=== PATIENT | female | born 1935 | race Caucasian/White ===

== ENCOUNTER → 2016-11-04 | Outpatient (CLI) | payer MEDICARE, BC, OTHER ==
[~2016-11-04] MED LIST: GABA-279 PO
[2016-11-04 11:28] LABS: MEAN CORPUSCULAR HEMOGLOBIN 30.5 pg (27.0-33.0); MEAN CORPUSCULAR HGB CONC 32.7 g/dl (32.0-36.5); MEAN CORPUSCULAR VOLUME 93.1 fl (80.0-96.0); RED CELL DISTRIBUTION WIDTH 12.4 % (11.5-14.5); WHITE BLOOD COUNT 6.8 K/mm3 (4.0-10.0)
[2016-11-04 11:36] LABS: INR 0.95
[2016-11-04 12:35] LABS: ALBUMIN/GLOBULIN RATIO 1.18 (1.00-1.93); ALKALINE PHOSPHATASE 82 U/L (45-117); ALT/SGPT 20 U/L (12-78); ANION GAP 7 MEQ/L (8-16); AST/SGOT 24 U/L (15-37); BILIRUBIN,TOTAL 0.6 MG/DL (0.2-1.0); BLOOD UREA NITROGEN 18 MG/DL (7-18); CALCIUM LEVEL 9.4 MG/DL (8.8-10.2); CARBON DIOXIDE LEVEL 31 MEQ/L (21-32); CHLORIDE LEVEL 104 MEQ/L (98-107); CREATININE FOR GFR 0.83 MG/DL (0.55-1.02); GLOMERULAR FILTRATION RATE > 60.0 (>32); GLUCOSE, FASTING 96 MG/DL (83-110); SODIUM LEVEL 142 MEQ/L (136-145); TOTAL PROTEIN 7.4 GM/DL (6.4-8.2)
--- NOTE | 2016-11-04 12:36 | REP ---
Chest two views HISTORY: Preoperative Comparison: None The lungs are clear. The heart is normal in size. The pulmonary vasculature is normal in appearance. There is an old compression fracture of a mid thoracic vertebral body. IMPRESSION: No acute disease. Signed by Rafa Delacruz MD 11/04/2016 12:28 P
--- NOTE | 2016-11-04 12:54 | ECGEPIP ---
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
== END ==
LOC: M ADMPAT 10:16
PROVIDERS: ATTEND Orthopaedic Surgery
DX: M17.11 Unilateral primary osteoarthritis, right knee (principal); Z79.01 Long term (current) use of anticoagulants

== ENCOUNTER 2016-11-18 06:17 | Inpatient (IN) | payer MEDICARE, BC, OTHER ==
[2016-11-04 11:06] VITALS: BP 130/82
--- NOTE | 2016-11-15 14:40 | HPE ---
DATE OF ADMISSION: 11/18/2016 CHIEF COMPLAINT: Right knee pain and stiffness. HISTORY: This is a pleasant 81-year-old female patient with progressively worsening right knee pain and stiffness. She has failed to improve with conservative management to include, activity modification, injections and physical therapy. She continues to have symptoms in her knee with weightbearing activities and activities of daily living. She has elected for surgery for continued symptoms. She has consented for a right total knee arthroplasty by Dr. Stover. X-rays notable for end-stage degenerative changes of the right knee. Medical optimization completed by Yaz Clemons. ALLERGIES: NO KNOWN DRUG ALLERGIES MEDICATIONS: - gabapentin 100 mg one tablet twice per day MEDICAL CONDITIONS: Include first-degree heart block, restless leg syndrome, osteopenia, symptomatic osteoarthritis of the right knee. PAST SURGICAL HISTORY: Includes bladder sling, cataract surgery bilaterally. She has had a gallbladder removed and a colonoscopy. FAMILY HISTORY: Noncontributory. REVIEW OF SYSTEMS: Denies fever or chills. Denies chest pain, shortness breath or cough. Denies difficulty breathing. Denies abdominal pain. Denies nausea or vomiting. Denies recent upper respiratory infection or urinary tract infection (UTI) symptoms. Notes persistent pain in her right knee with weightbearing activities. Denies nausea or vomiting. PHYSICAL EXAMINATION: Physical examination today reveals a well-nourished, well-developed, alert female patient. She ambulates with a slight limping gait favoring the right side. She does not use assistive devices. Her mood and affect are appropriate for situation. Examination of the right knee does reveal tenderness mainly along the medial joint line. There is varus deformity of the knee. Patellar grind is irritable. The calf is soft, nontender to palpation. She is able to appreciate light touch on examination. It is well perfused in the right lower extremity. Neck is supple without adenopathy or jugular venous distention (JVD). Lungs are clear to auscultation without rales or wheeze. Heart has regular rate and rhythm. Abdomen, bowel sounds are present. Current vital signs: Blood pressure 162/84, pulse 62, respirations 16, height 64 inches, weight 168 pounds, temperature 97.6, Body Mass Index (BMI) 28.2. LABORATORY DATA: Chest x-ray with no acute cardiopulmonary disease process noted. EKG: Sinus isael with first-degree heart block. UA is notable for 3+ leukocyte esterase, 1+ blood and that was repeated in the office at her primary career transition specialist, per the patient was normal. Urine culture no growth. Nasal and sinus cultures normal taiwo. Glucose 96, BUN 18, creatinine 0.83. Sodium 142, potassium 4.0, WBC count is 6.8, hemoglobin 13.7, hematocrit 41.9, sedimentation rate is 10, INR 0.95, Protime 12.8. IMPRESSION: Symptomatic osteoarthritis of the right knee. PLAN: Consented for right total knee arthroplasty by Dr. Jolanta DUNAWAY
[2016-11-18] VITALS (8 sets, daily range): BP systolic 119–140; BP diastolic 57–81
[~2016-11-18] VITALS: Ht 167.6 cm; Wt 74.8 kg
[2016-11-18] MEDS ORDERED: LR 1,000 ML IV SCH ×2 (06:30→11:00)
[2016-11-18] MEDS ORDERED: PERCOCET 5MG/325MG TAB PO ONE (06:30)
[2016-11-18] MEDS ORDERED: PREGABALIN 75 MG CAP(LYRICA) PO ONE (06:30)
[2016-11-18] MEDS ORDERED: fentaNYL 100 MCG/2 ML INJECTION (J3010) As Ordered ONE ×3 (07:46→08:52)
[2016-11-18] MEDS ORDERED: MIDAZOLAM INJ 2 MG/2 ML VIAL (J2250) As Ordered ONE ×2 (07:46→08:52)
[2016-11-18] MEDS ORDERED: BUPIVACAINE/EPIN 0.25% 30 ML VIAL As Ordered ONE (08:04)
[2016-11-18] MEDS ORDERED: TRANEXAMIC ACID 100 MG/ML 10ML VIAL As Ordered ONE (08:04)
[2016-11-18] MEDS ORDERED: BUPIVACAINE HCL 0.25% 30 ML VIAL As Ordered ONE (08:04)
[2016-11-18] MEDS ORDERED: EPINEPHrine INJ 1 MG/ML 1ML VIAL/AMP As Ordered ONE (08:05)
[2016-11-18] MEDS ORDERED: ceFAZolin 1GM INJ (J0690) As Ordered ONE (08:05)
[2016-11-18] MEDS ORDERED: MIDAZOLAM INJ 2 MG/2 ML VIAL (J2250) IV ONE (09:15)
[2016-11-18] MEDS ORDERED: fentaNYL 100 MCG/2 ML INJECTION (J3010) IV ONE (09:15)
[2016-11-18] MEDS ORDERED: ePHEDrine SULFATE 25 MG/5 ML(5MG/ML) SYRINGE As Ordered ONE (09:46)
[2016-11-18] MEDS ORDERED: ACETAMINOPHEN TAB 650MG DOSE (2X325MG) PO PRN (11:00)
[2016-11-18] MEDS ORDERED: fentaNYL 100 MCG/2 ML INJECTION (J3010) IV PRN (11:00)
[2016-11-18] MEDS ORDERED: FLEET ENEMA PR PRN (11:00)
[2016-11-18] MEDS ORDERED: ONDANSETRON 4MG/2ML VIAL (J2405) IV PRN ×2 (11:00)
[2016-11-18] MEDS ORDERED: PERCOCET 5MG/325MG TAB PO PRN (11:00)
[2016-11-18] MEDS ORDERED: MORPHINE 4 MG/ML 1ML SYRINGE IV PRN (11:00)
[2016-11-18] MEDS ORDERED: PATIENT IS CURRENTLY ON AN ON-Q PAIN BUSTER PAIN RELIEF SYSTEM XX SCH (11:00)
[2016-11-18] MEDS ORDERED: MORPHINE 10 MG/ML 1ML VIAL IV PRN (11:00)
[2016-11-18] MEDS: PERCOCET 5MG/325MG TAB PO PRN ×2 (14:20→22:10)
[2016-11-18] MEDS: GABAPENTIN 100 MG CAP PO SCH ×2 (16:03→22:10)
[2016-11-18] MEDS ORDERED: WARFARIN SOD 3 MG TAB PO SCH (17:00)
--- NOTE | 2016-11-18 17:58 | RO ---
DATE OF PROCEDURE: 11/18/2016 PREOPERATIVE DIAGNOSIS: Right knee osteoarthritis. POSTOPERATIVE DIAGNOSIS: Right knee osteoarthritis. OPERATIVE PROCEDURE: Right total knee replacement. SURGEON: Miguel Angel Stover MD SHINE WORKER: Sundar Gaxiola ANESTHESIA: Spinal with block. ESTIMATED BLOOD LOSS: Less than 100 mL. COMPLICATIONS: None. TOURNIQUET TIME: 50 minutes at 275 mmHg. INCISION TO DRESSING ON TIME: 64 minutes. COMPONENTS USED: DePuy PFC Sigma size 3 femoral component, size 3 tibial component, 10 mm posterior stabilized polyethylene, 35 mm patella button. One dose bone cement. INDICATIONS: Progressive right knee discomfort. Imaging study evidence of dtvk-uh-uuly osteoarthritic change. Consent reviewed in detail including a lizette discussion of the pathology involved, the procedure proposed, alternatives including doing nothing, risks including but not limited to pain, failure, infection, bleeding, blood loss, incomplete relief of symptoms, need for additional surgery and other issues. Please also note that PainBuster was installed at the conclusion of the case. OPERATIVE COURSE: Identified in holding area, site and side verified. The block had been achieved, brought to the operating room, spinal was achieved. Positioned for exposure of the right knee. Tourniquet was high on the right thigh. She was sterilely prepped and draped in the usual fashion for exposure of the right knee. The leg was elevated by myself. Tourniquet was inflated to 275. Next, I made the incision with a #10 blade for a standard midline medial parapatellar arthrotomy. Mr. Gaxiola assisted in positioning. The arthrotomy was made with a #10 blade knife, developed down through the extensor mechanism for median parapatellar arthrotomy. Next, the patella was everted. Medial release was accomplished. Supracondylar fat pad was cleared to allow access to the interior femur. Infrapatellar fat pad was debrided to allow appropriate visualization. Knee was flexed. Patella everted by Mr. Gaxiola. I utilized the step drill to open the femoral canal and we installed the distal femoral cutting guide 3 degrees valgus. Next, it was pinned into place. Mr. Gaxiola utilized the oscillating saw to make the cut while I held the Ai retractors protecting the collateral ligaments. Next, the knee was flexed, sizing guide installed; sized for a size 3 femur as predicted. Next rotational alignment guide was secured, pinned, four in one jig was installed and pinned. Next, Homans were utilized to protect soft tissue. Anterior, posterior and chamfer cuts were then made. Anterior cut recut to ensure good fit. Four in one block removed. Next attention turned to the tibia. Mr. Gaxiola assisted with posterior retractor and Homans, subluxing the tibia anteriorly. External alignment jig was installed. Alignment based on the second ray 4 mm off the bad side, pinned into place. Alignment verified with the external alignment mamta. Next, once this was accomplished and I verified appropriate placement of Ai retractors I used the oscillating saw to remove the tibial articular surface, which was quite ebernated. Next, at this stage posterior retractors removed, spacing retractors installed. I resected the lateral medial meniscus as well as the posterior condylar osteophyte which was removed with an osteotome. Next, the knee was placed in extension. Extension guide was installed. Knee was placed in flexion. Flexion block was installed verifying alignment for a 10 mm block. Next, the femoral notch cutting jig was installed, pinned into place. Oscillating saw was utilized to make the femoral notch cuts for the posterior stabilized femoral component. Next, a rasp was utilized to contour the cuts. Trial femoral component installed. Next, trial tibial component and tray installed. Knee placed through a range of motion to allow rotational alignment. Rotational alignment marked with a hot knife. Next, patella everted, posterior patella cut made. We utilized a 35 jig and the step drill to make the patella pegholes. Next, trial patella installed; knee placed through range of motion. Patella tracking was excellent. Next, at this stage, all trial components removed. Pulse lavage irrigation was utilized. Mr. Gaxiola stepped to the back table and prepared the cement. I positioned the retractors in the knee for receiving the non trial components. I dried the bone surfaces using a dry lap and suction. Next, the components were cemented into place in the usual fashion. Excess cement was cleared with curettes. The 10 mm polyethylene was installed, tamped into place. The knee was placed in extension, tele-everted. Patella component was cemented into place and clamped. Cement was allowed to harden while I utilized pulse lavage and placed the capital TXA solution for hemostasis. Next, after a minute this TXA was evacuated and the clamp was removed and we closed the extensor mechanism with interrupted stitch, followed by a straddle fix running stitch. Next, deep dermis reapproximated with interrupted buried Vicryl, skin reapproximated with Prineo dressing. Tourniquet was deflated at approximately 50 minutes. Next, the PainBuster pump was placed exiting superior laterally. Next, once this all was accomplished, the patient was moved to the hospital bed; moved to recovery in good condition. For further details please refer to medical record.
[2016-11-18] MEDS: ASCORBIC ACID 500 MG TAB PO SCH (22:10)
[2016-11-19 02:00] VITALS: BP 99/51
[2016-11-19] MEDS: PERCOCET 5MG/325MG TAB PO PRN ×4 (03:24→20:19)
[2016-11-19 06:00] VITALS: BP 94/52
[2016-11-19 07:04] LABS: INR 1.34
[2016-11-19 07:05] LABS: MEAN CORPUSCULAR HEMOGLOBIN 30.5 pg (27.0-33.0); MEAN CORPUSCULAR HGB CONC 33.3 g/dl (32.0-36.5); MEAN CORPUSCULAR VOLUME 91.7 fl (80.0-96.0); RED CELL DISTRIBUTION WIDTH 12.4 % (11.5-14.5); WHITE BLOOD COUNT 10.3 K/mm3 (4.0-10.0)
[2016-11-19] MEDS: MOM 30ML SUSPENSION UDC PO SCH (08:12)
[2016-11-19] MEDS: MIRALAX *UNIT DOSE* 17GM PACKET PO SCH (08:12)
[2016-11-19] MEDS: GABAPENTIN 100 MG CAP PO SCH ×3 (08:12→20:18)
[2016-11-19] MEDS: SENOKOT S TAB PO SCH ×2 (08:13→20:18)
[2016-11-19] MEDS: ASCORBIC ACID 500 MG TAB PO SCH ×2 (08:13→20:18)
[2016-11-19 10:00] VITALS: BP 100/53
[2016-11-19] MEDS ORDERED: dexameTHASONE 10 MG/1 ML VIAL PRES.FREE (J1100) ONE (13:12)
[2016-11-19] MEDS ORDERED: ROPIvacaine 0.5% 30 ML INJECTION (J2795) ONE (13:12)
--- NOTE | 2016-11-19 13:40 | REP ---
Clinical: Evaluate hardware. Technique: AP and lateral views of the right knee. Findings: The patient is status post arthroplasty with normal appearance in positioning to the femoral and tibial components. Overlying postsurgical changes are appreciated. Impression: Status post arthroplasty. Signed by Omar Hodge MD 11/19/2016 01:31 P
[2016-11-19 14:00] VITALS: BP 113/54
[2016-11-19] MEDS ORDERED: WARFARIN SOD 5 MG TAB PO ONE (17:00)
[2016-11-19 22:00] VITALS: BP 115/62
[2016-11-20 06:00] VITALS: BP 109/55
[2016-11-20 08:23] LABS: INR 1.54
[2016-11-20] MEDS ORDERED: MAGNESIUM CITRATE 300 ML BTL PO ONE (08:30)
[2016-11-20] MEDS ORDERED: PERC5TAB6 PO (08:33)
[2016-11-20] MEDS ORDERED: COUM2.5T11 PO (08:33)
[2016-11-20] MEDS: MIRALAX *UNIT DOSE* 17GM PACKET PO SCH (09:06)
[2016-11-20] MEDS: MOM 30ML SUSPENSION UDC PO SCH (09:06)
[2016-11-20] MEDS: SENOKOT S TAB PO SCH (09:06)
[2016-11-20] MEDS: GABAPENTIN 100 MG CAP PO SCH (09:06)
[2016-11-20] MEDS: ASCORBIC ACID 500 MG TAB PO SCH (09:06)
[2016-11-20] MEDS: PERCOCET 5MG/325MG TAB PO PRN (13:15)
--- NOTE | 2016-11-22 20:47 | DSES ---
DATE OF ADMISSION: 11/18/2016 DATE OF DISCHARGE: 11/20/2016 ATTENDING PHYSICIAN: Dr. Miguel Angel Stover ADMITTING DIAGNOSIS: Symptomatic osteoarthritis of the right knee. OTHER DIAGNOSES: 1. First-degree heart block. 2. Restless leg syndrome. 3. Osteoporosis. DISCHARGE DIAGNOSIS: Osteoarthritis of the right knee status post right total knee arthroplasty. HISTORY OF PRESENT ILLNESS: Patient is an 81-year-old female with continuing right knee pain and stiffness. She did not respond to conservative treatment, so she had elected for a right total knee arthroplasty by Dr. Stover. OPERATION PERFORMED: Right total knee arthroplasty. HOSPITAL COURSE: The patient underwent a right total knee arthroplasty under spinal anesthesia, which was uneventful. She was up with physical therapy and weightbearing as tolerated on the right lower extremity. She will take Coumadin and use her thromboembolic deterrent stockings for 30 days postoperative to prevent deep vein thrombosis. She was discharged on oral pain medications and will resume her preoperative medications and diet. She will followup in our office in 12-14 days for a wound check and staple removal. She is encouraged to contact our office sooner if there is any increased pain, drainage, redness, numbness or tingling in her lower extremity, fever greater than 101 degrees, or for any other concerns. Please see medical record for additional details.
== END 2016-11-20 13:15 | disposition home health service (06) | DRG 470 ==
LOC: M OR 06:17 → M MS5PR 11:15
PROVIDERS: ADMIT Orthopaedic Surgery; ATTEND Orthopaedic Surgery
PROC: 0SRC0J9 Replacement of Right Knee Joint with Synthetic Substitute, Cemented, Open Approach (ICD-10-PCS; principal; 2016-11-18 08:30)
DX: M17.11 Unilateral primary osteoarthritis, right knee (principal); I44.0 Atrioventricular block, first degree

== ENCOUNTER → 2016-12-02 | Outpatient (REF) | payer MEDICARE, BC, OTHER ==
[~2016-12-02] MED LIST changes: +COUM2.5T11 PO; +PERC5TAB6 PO
[2016-12-02 13:43] LABS: INR 1.22
== END ==
LOC: M LABDRAW1 13:11
PROVIDERS: ATTEND Orthopaedic Surgery
DX: Z79.01 Long term (current) use of anticoagulants (principal)

== ENCOUNTER 2020-12-11 14:10 | Inpatient (IN) | payer MEDICARE, BC, OTHER ==
[2020-12-11] VITALS (13 sets, daily range): BP systolic 101–128; BP diastolic 50–64
[~2020-12-11] VITALS: Ht 165.1 cm; Wt 78.4 kg
[~2020-12-11 14:10] MED LIST changes: -COUM2.5T11 PO; +COUM2.5T17 PO; +GABA-1171 PO; -GABA-279 PO; +PERC5TAB12 PO; -PERC5TAB6 PO
[2020-12-11] MEDS ORDERED: ACETAMINOPHEN TAB 650MG DOSE (2X325MG) PO PRN (14:45)
--- NOTE | 2020-12-11 15:23 | REP ---
INDICATION: SOB. COMPARISON: None. TECHNIQUE: Portable FINDINGS: The technique utilized in obtaining the radiograph has magnified the cardiac silhouette and accentuated the interstitial markings. The superior mediastinal structures are midline. The cardiac silhouette is unremarkable in size, shape, and position. The diaphragmatic surfaces of the lungs are regular, and the costophrenic angles are clear. The pulmonary arevalo are clear. Biapical pleuroparenchymal scarring is noted status quo. The imaged osseous structures are intact. IMPRESSION: There is no acute cardiopulmonary disease. <Electronically signed by Zeferino Evangelista > 12/11/20 [id number]
--- NOTE | 2020-12-11 15:26 | HPEPDOC ---
[facility] Medical History & Physical Date of Admission Dec 11, 2020 Date of Service: Dec 11, 2020 History and Physical Chief complaint: Presented to [facility] as a transfer from [facility] for suspected GI bleed History of present illness: Patient is a 85-year-old female who is transferred from [facility] for suspected GI bleed. Patient reported that yesterday she was reporting weakness and lightheadedness and felt that this could be hypoglycemia she had consumed a banana and a sugary drink and went to bed, woke up and continued to experience the same. Patient attempted to inability to the bathroom. However, experience severe lightheadedness and she eased herself to the ground. She denies any head trauma, loss of consciousness or any injuries. She contacted EMS for further assistance. Patient was taken to [facility] where she had imaging and lab work complet ed. Patient had a CXR, CTA of her chest and CT abdomen and pelvis. 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 CTA chest revealed emphysematous changes without evidence of PE. Chest x-ray had revealed a nodule in the right upper lobe that was not seen on CTA. Patient was suspected to have GI bleed based on the workup and was transferred to [facility] for further evaluation. Patient reports that currently she denies any chest pain, shortness of breath or cough. Has not experience any fevers or chills. Reported that she had vomited one time this morning, described as black slippery material. Denies any abdominal pain. Denies any blood in her stool. Her last regular bowel movement was yesterday afternoon and was reported to be normal. She denies any urinary discomfort. Patient is reported that her last colonoscopy was at [facility], possibly 15 years ago and was reported to be normal. Patient reports that she uses ssnr-oqm-pukvels aspirin 325 for headaches, last use of this was one week ago and she uses this very infrequently. While his room, patient had a bowel movement that did not reveal any gross evidence of bleeding. 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 Review of Systems: 10 point review of systems complete, all negative otherwise stated in HPI Physical exam: - Vitals: BP [124/55], HR [82], RR [18], Sat [98%RA], Temp [97.5F] - General: Lying in bed, No acute distress, Speaking in full sentences, AAOx3 - HEENT: NC, AT, PERRLA - CVS: RRR, +S1S2 - Lungs: Fair air entry bilaterally, No appreciable wheezing / rales / rhonchi - Abdomen: Soft, Non-distended, Non-tender - Extremities: No lower extremity edema, No calf tenderness - Neuro: No focal motor or sensory deficit - Skin: No visible rashes Labs: See below Imaging: See below EKG: See below Assessment and Plan: Pre-syncope - likely 2/2 anemia - suspected to be 2/2 GI bleed - Patient presented to the emergency room with lightheadedness - Patient was hypotensive and improved with IV fluid hydration - Symptoms have resolved after IV fluid hydration - Hemoglobin upon arrival to emergency room at [facility] was 8.1; she was transfused 1 unit PRBC - Imaging at [facility] reviewed - EKG reviewed from [facility]; no evidence of ischemia - Patient has been consented for additional blood transfusions - Will trend H&H - Will start Protonix / Carafate - Will start IV fluid hydration; s/p 1.5 Liter of NS at [facility] - General surgery, Dr. Stanton has been consulted; likely EGD - Will keep patient NPO for now Leukocytosis - possibly 2/2 reactive etiology - Review of systems not reveal any source of infection - Lab work at the [facility] revealed a WBC count of 16.7 - Patient is afebrile - s/p Ceftriaxone 1g IV at [facility] - UA from [facility] does not reveal any evidence of infection Lactic acidosis - Patient had a lactic acid of 2.4 at [facility] - Will repeat now Right adrenal mass - Imaging from [facility] reveals a 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 - Will likely require additional evaluation after acute bleeding has been addressed RLS as per patients accord - Patient reports that she takes gabapentin for this - Will continue for now Gastrointestinal prophylaxis - Will start Protonix / Carafate DVT prophylaxis - Will start TEDs/Sequentials Code Status: - Discussed with patient about her wishes - Patient had indicated that if her heart stops she does not want chest compressions and she does not want to be connected to mechanical ventilator - DNR / DNI Vital Signs Vital Signs Date Time Temp Pulse Resp B/P (MAP) Pulse Ox O2 Delivery O2 Flow Rate FiO2 12/11/20 14:40 97.5 82 18 124/55 (78) 98 Room Air Home Medications Scheduled Gabapentin (Gabapentin) 100 Mg Cap, 100 MG PO DAILY Warfarin Sodium (Coumadin) 2.5 Mg Tab, 1 TAB PO ASDIRECTED MDD = 6 tabs Scheduled PRN Oxycodone HCl/Acetaminophen (Percocet 5-325 mg Tablet) 1 Tab Tab, 1-2 TAB PO Q4H PRN for PAIN MDD = 8 Allergies Coded Allergies: No Known Allergies (Unverified , 11/18/16) GÉNESIS ARCHER MD Dec 11, 2020 15:26
[2020-12-11] MEDS: NS 1,000 ML IV SCH (15:41)
[2020-12-11] MEDS: PANTOPRAZOLE 40MG VIAL (C9113 PER 1) IV SCH (15:41)
[2020-12-11 15:43] LABS: HEMATOCRIT 25.5 % (36.0-47.0); HEMOGLOBIN 8.1 g/dl (12.0-15.5); MEAN CORPUSCULAR HEMOGLOBIN 30.7 pg (27.0-33.0); MEAN CORPUSCULAR HGB CONC 31.8 g/dl (32.0-36.5); MEAN CORPUSCULAR VOLUME 96.6 fl (80.0-96.0); PLATELET COUNT, AUTOMATED 174 10^3/uL (150-450); RED BLOOD COUNT 2.64 10^6/uL (4.00-5.40); WHITE BLOOD COUNT 15.9 10^3/uL (4.0-10.0)
[2020-12-11 15:53] LABS: INR 1.11; PROTHROMBIN TIME 14.6 SECONDS (12.5-14.3)
[2020-12-11 16:16] LABS: ALBUMIN 2.6 GM/DL (3.2-5.2); ALT/SGPT 14 U/L (12-78); BILIRUBIN,TOTAL 0.7 MG/DL (0.2-1.0); BLOOD UREA NITROGEN 54 MG/DL (7-18); CALCIUM LEVEL 7.6 MG/DL (8.8-10.2); CARBON DIOXIDE LEVEL 22 MEQ/L (21-32); CHLORIDE LEVEL 117 MEQ/L (98-107); CK-MB VALUE MASS 1.1 NG/ML (<3.6); CPK CREATINE PHOSPHOKINASE 65 U/L (26-192); CREATININE FOR GFR 0.62 MG/DL (0.55-1.30); GLOMERULAR FILTRATION RATE > 60.0 (>32); GLUCOSE, FASTING 107 MG/DL (70-100); MAGNESIUM LEVEL 1.9 MG/DL (1.8-2.4); MB/CK RELATIVE INDEX 1.69 (< OR =4); POTASSIUM SERUM 4.4 MEQ/L (3.5-5.1); SODIUM LEVEL 146 MEQ/L (136-145); TOTAL PROTEIN 4.9 GM/DL (6.4-8.2); TROPONIN I 0.02 NG/ML (< 0.10)
[2020-12-11] MEDS: SUCRALFATE SUSP 1GM/10ML UD PO SCH ×2 (18:40→20:25)
--- NOTE | 2020-12-11 23:33 | ECGEPIP ---
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 No remarkable changes but faster heart rate Electronically Signed on 12-11-2020 23:32:51 EDT by Torsten Orr
[2020-12-12] VITALS (16 sets, daily range): BP systolic 94–156; BP diastolic 51–68
[2020-12-12 00:57] LABS: HEMATOCRIT 28.4 % (36.0-47.0); HEMOGLOBIN 9.2 g/dl (12.0-15.5)
[2020-12-12 02:46] LABS: HEMATOCRIT 24.4 % (36.0-47.0); HEMOGLOBIN 7.9 g/dl (12.0-15.5)
[2020-12-12] MEDS: GABAPENTIN 100 MG CAP PO PRN ×2 (03:06→20:03)
[2020-12-12] MEDS: PANTOPRAZOLE 40MG VIAL (C9113 PER 1) IV SCH ×2 (03:07→16:14)
[2020-12-12 06:22] LABS: BASO # 0.1 10^3/uL (0.0-0.2); BASO % 0.8 % (0.0-1.0); EOS # 0.1 10^3/uL (0.0-0.5); EOS % 0.7 % (0.0-3.0); HEMATOCRIT 24.2 % (36.0-47.0); HEMOGLOBIN 7.8 g/dl (12.0-15.5); LYMPH # 2.8 10^3/uL (1.5-5.0); LYMPH % 19.8 % (24.0-44.0); MEAN CORPUSCULAR HEMOGLOBIN 30.1 pg (27.0-33.0); MEAN CORPUSCULAR HGB CONC 32.2 g/dl (32.0-36.5); MEAN CORPUSCULAR VOLUME 93.4 fl (80.0-96.0); MONO # 0.8 10^3/uL (0.0-0.8); MONO % 5.6 % (2.0-8.0); NEUTROPHILS # 10.2 10^3/uL (1.5-8.5); NEUTROPHILS % 72.5 % (36.0-66.0); PLATELET COUNT, AUTOMATED 136 10^3/uL (150-450); RED BLOOD COUNT 2.59 10^6/uL (4.00-5.40)
[2020-12-12 06:47] LABS: BLOOD UREA NITROGEN 48 MG/DL (7-18); CALCIUM LEVEL 7.3 MG/DL (8.8-10.2); CARBON DIOXIDE LEVEL 23 MEQ/L (21-32); CHLORIDE LEVEL 119 MEQ/L (98-107); CREATININE FOR GFR 0.71 MG/DL (0.55-1.30); GLOMERULAR FILTRATION RATE > 60.0 (>32); GLUCOSE, FASTING 98 MG/DL (70-100); MAGNESIUM LEVEL 1.8 MG/DL (1.8-2.4); POTASSIUM SERUM 4.2 MEQ/L (3.5-5.1); SODIUM LEVEL 147 MEQ/L (136-145)
[2020-12-12] MEDS: NS 1,000 ML IV SCH ×2 (08:20→16:15)
[2020-12-12] MEDS: SUCRALFATE SUSP 1GM/10ML UD PO SCH ×4 (08:25→20:03)
--- NOTE | 2020-12-12 08:59 | CR ---
CONSULTATION DATE OF CONSULT: 12/12/2020 CHIEF COMPLAINT: GI bleed. HISTORY OF PRESENT ILLNESS: Patient is an 85-year-old female. She was transferred down here from [facility] for symptomatic anemia with GI bleeding. Starting the day before yesterday she started to get a little weak. Yesterday she woke up felt even more weak, started to have some coffee ground emesis and was brought to the Emergency Room at [facility]. In the ER she was diagnosed with a GI bleed. Her hemoglobin was down and they started transfusing her there. After transfusion she was transferred over here to the medicine service. Since transfer here her hemoglobin has also started to go down again. She has had a couple bright red bloody bowel movements right after getting here. She also had a couple bloody emesis overnight. She feels much better. She still feels slightly weak, but much improved from yesterday, her vitals have been stable. She is receiving 2 more units of blood right now. Her bloody bowel movements overnight have decreased and they are more black and tarry now. Her last colonoscopy was 15 years ago and was normal. She has never had an upper endoscopy. Denies any problems with heartburn or reflux. She denies any risk factors for those as well. No ston-btu-nyqtyrc medications other than occasional aspirin for headaches; last one was over a week ago. Denies drugs or alcohol, no tobacco, minimal caffeine. No excessive dietary risk factors either. PAST MEDICAL HISTORY: RLS. PAST SURGICAL HISTORY: 1. Bladder suspension. 2. Cholecystectomy. 3. Right knee surgery. ALLERGIES: None. MEDICATIONS: Please see Med Rec. SOCIAL HISTORY: Negative. FAMILY HISTORY: Noncontributory. REVIEW OF SYSTEMS: Pertinent positives and negatives as stated in the HPI. PHYSICAL EXAMINATION: General: A&O times 3, in no acute distress. Vital signs: Temp 98, pulse 74, respirations 18, blood pressure 105/51, pulse ox 98% on room air. HEENT: Pupils equally round and reactive to light and accommodation. Heart: S1 and S2 regular rate and rhythm. Lungs: Clear to auscultation bilaterally. Abdomen: Soft, nontender, nondistended. Extremities: No clubbing, cyanosis or edema. LABORATORY DATA: White count 14, hemoglobin was 9.2 down to 7.9 this morning and 7.8 after that, platelets 136. Potassium 4.2, creatinine 0.71, magnesium 1.8. ASSESSMENT AND RECOMMENDATIONS: Patient is an 85-year-old female with symptomatic anemia likely secondary to an upper GI bleed. Recommendation at this time is to continue with fluid hydration, clear liquid diet and blood transfusion. It appears as though the bleeding is slowing down some with her stools becoming more dark colored. She is responding to fluid management as well as the blood transfusions. We will continue with the Carafate and the PPI for now and I will keep her n.p.o. after midnight with plans for an upper endoscopy first thing tomorrow morning hopefully when she is more stable. If she has anymore persistent vomiting or bright red blood throughout the day today then I will plan to scope her today instead. She understands the plan, also understands that if the upper scope comes back negative then we will discuss colonoscopy either this week or as an outpatient.
--- NOTE | 2020-12-12 10:00 | IPNPDOC ---
Text Note Date of Service The patient was seen on 12/12/20. NOTE Subjective: Patient seen and examined at bedside overnight events. Significant for possible bloody emesis with bloody bowel movements. Patient voices no medical complaints this morning. Objective: - Vitals: See below - General: Lying in bed, No acute distress, elderly - HEENT: NC, AT, PERRLA - CVS: RRR, +S1S2 - Lungs: Fair air entry bilaterally, No appreciable wheezing / rales / rhonchi - Abdomen: Soft, Non-distended, Non-tender - Extremities: No lower extremity edema, No calf tenderness - Neuro: No focal motor or sensory deficit - Skin: No visible rashes Assessment and Plan: Pre-syncope - likely 2/2 anemia - suspected to be 2/2 GI bleed - Patient presented to the emergency room with lightheadedness - Patient was hypotensive and improved with IV fluid hydration - Symptoms have resolved after IV fluid hydration - Hemoglobin upon arrival to emergency room at [facility] was 8.1; she was transfused 1 unit PRBC - Imaging at [facility] reviewed - EKG reviewed from [facility]; no evidence of ischemia - Patient has been consented for additional blood transfusions - discussed with surgery - holding off on scope for now, continue to trend H/H - transfuse 2 PRBC today - Will keep patient NPO for now Leukocytosis - possibly 2/2 reactive etiology - Review of systems not reveal any source of infection - Lab work at the [facility] revealed a WBC count of 16.7 - Patient is afebrile - s/p Ceftriaxone 1g IV at [facility] - UA from [facility] does not reveal any evidence of infection Lactic acidosis - resolved - Patient had a lactic acid of 2.4 at [facility] Right adrenal mass - Imaging from [facility] reveals a 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 - Will likely require additional evaluation after acute bleeding has been addressed RLS - Patient reports that she takes gabapentin for this - Will continue for now Gastrointestinal prophylaxis - Will start Protonix / Carafate DVT prophylaxis - Will start TEDs/Sequentials Code Status: - Discussed with patient about her wishes - Patient had indicated that if her heart stops she does not want chest compressions and she does not want to be connected to mechanical ventilator - DNR / DNI Disposition: transfuse 2 PRBC today, trend H/H, follow up with surgery ; extensive discussion with her son Maritza HICKMAN I+O Maritza HICKMAN, I+O Laboratory Tests 12/11/20 15:23 12/12/20 00:42 12/12/20 02:26 12/12/20 06:01 Vital Signs Date Time Temp Pulse Resp B/P (MAP) Pulse Ox O2 Delivery O2 Flow Rate FiO2 12/12/20 08:30 97.7 68 18 117/58 96 Room Air I&O- Last 24 Hours up to 6 AM 12/12/20 06:00 Intake Total 2381 ml Output Total 320 ml Balance 2061 ml DIONIICO MASCORRO MD Dec 12, 2020 10:00
[2020-12-12] MEDS ORDERED: LIDOCAINE 1% MDV 20ML VIAL As Ordered ONE (14:41)
[2020-12-12] MEDS ORDERED: SODIUM CHLORIDE 0.9% INJ 10 ML SYR IV PRN (16:05)
[2020-12-12] MEDS: SODIUM CHLORIDE 0.9% INJ 10 ML SYR IV SCH (16:14)
[2020-12-12 16:54] LABS: HEMATOCRIT 28.9 % (36.0-47.0); HEMOGLOBIN 9.3 g/dl (12.0-15.5)
--- NOTE | 2020-12-12 19:59 | REP ---
PROCEDURE NAME: MIDLINE INSERTION W/ SITERITE CLINICAL INFORMATION: poor iv access. COMPARISON: None. PROCEDURE DESCRIPTION: The procedure was performed by THONY Canales, under the direct supervision of Dr. Daugherty. The risks and benefits of the procedure were explained to the patient and an informed consent was obtained both verbally and written. Directly prior to the start of the procedure a formal time-out was completed in the procedure room. The right basilic vein was localized using ultrasound guidance. The skin was prepped and draped in sterile fashion. Two mL of 1% lidocaine 10 mg/mL was used as a local anesthetic. Using ultrasound guidance the right basilic vein was cannulated, and a 0.018 guidewire was inserted. The needle was removed and a 5.5 Kenyan dilator and peel-away sheath was inserted over the guidewire. A 5.5 Kenyan dual lumen catheter was cut to a length of 15.5 cm. The dilator was removed and the catheter was inserted over the guidewire. The peel-away sheath was removed and the catheter was flushed with heparinized saline as per hospital protocol. The catheter was affixed to the skin and a sterile dressing was applied. The patient tolerated the procedure well and there were no immediate complications. CONCLUSION: Mid line insertion into the right basilic vein. <Electronically signed by Edie Saucedo > 12/12/20 1553 <Electronically signed by Sam Daugherty > 12/12/20 1955
[2020-12-13] VITALS (14 sets, daily range): BP systolic 89–124; BP diastolic 42–58
[2020-12-13] MEDS: PANTOPRAZOLE 40MG VIAL (C9113 PER 1) IV SCH ×2 (03:36→16:20)
[2020-12-13] MEDS: NS 1,000 ML IV SCH ×2 (03:36→18:05)
[2020-12-13 05:56] LABS: BASO # 0.1 10^3/uL (0.0-0.2); BASO % 0.9 % (0.0-1.0); EOS # 0.4 10^3/uL (0.0-0.5); EOS % 5.3 % (0.0-3.0); HEMATOCRIT 23.2 % (36.0-47.0); HEMOGLOBIN 7.5 g/dl (12.0-15.5); LYMPH # 2.3 10^3/uL (1.5-5.0); LYMPH % 29.3 % (24.0-44.0); MEAN CORPUSCULAR HGB CONC 32.3 g/dl (32.0-36.5); MEAN CORPUSCULAR VOLUME 92.8 fl (80.0-96.0); MONO # 0.6 10^3/uL (0.0-0.8); MONO % 6.9 % (2.0-8.0); NEUTROPHILS # 4.5 10^3/uL (1.5-8.5); NEUTROPHILS % 57.2 % (36.0-66.0); PLATELET COUNT, AUTOMATED 100 10^3/uL (150-450); WHITE BLOOD COUNT 7.9 10^3/uL (4.0-10.0)
[2020-12-13 06:49] LABS: BLOOD UREA NITROGEN 28 MG/DL (7-18); CALCIUM LEVEL 7.1 MG/DL (8.8-10.2); CARBON DIOXIDE LEVEL 24 MEQ/L (21-32); CHLORIDE LEVEL 117 MEQ/L (98-107); CREATININE FOR GFR 0.52 MG/DL (0.55-1.30); GLOMERULAR FILTRATION RATE > 60.0 (>32); GLUCOSE, FASTING 84 MG/DL (70-100); MAGNESIUM LEVEL 1.9 MG/DL (1.8-2.4); POTASSIUM SERUM 3.6 MEQ/L (3.5-5.1); SODIUM LEVEL 148 MEQ/L (136-145)
[2020-12-13] MEDS ORDERED: propofoL 200 MG/20 ML VIAL As Ordered ONE (07:11)
[2020-12-13] MEDS ORDERED: LIDOCAINE 2% 100MG/5ML SDV (FOR ANES.) As Ordered ONE (07:11)
[2020-12-13] MEDS: SUCRALFATE SUSP 1GM/10ML UD PO SCH ×4 (07:30→21:29)
--- NOTE | 2020-12-13 07:32 | IPNPDOC ---
Text Note Date of Service The patient was seen on 12/13/20. NOTE No acute events overnight. She denies any more nausea or emesis with the clear liquids and says that the bowel movements have slowed down. VSSAF NAD abd - soft, nt, nd labs - below A) 85y/o female with GI bleed likely from an upper source P) NPO EGD this am further recommendations to follow Helio Stanton DO VS,Maritza, I+O VS, Maritza, I+O Laboratory Tests 12/12/20 16:41 12/13/20 05:31 Vital Signs Date Time Temp Pulse Resp B/P (MAP) Pulse Ox O2 Delivery O2 Flow Rate FiO2 12/13/20 04:00 98.2 60 18 124/49 (74) 93 Room Air I&O- Last 24 Hours up to 6 AM 12/13/20 06:00 Intake Total 2427 ml Output Total 900 ml Balance 1527 ml DARIN STANTON DO Dec 13, 2020 07:32
[2020-12-13] MEDS ORDERED: ePHEDrine SULFATE 25 MG/5 ML(5MG/ML) SYRINGE As Ordered ONE (08:06)
--- NOTE | 2020-12-13 08:21 | ROOR ---
Patient Name: Margaret Nair Procedure Date: 12/13/2020 7:56 AM Date of : 1935 Age: 85 Room: [facility] Gender: Female Note Status: Finalized Procedure: Upper GI endoscopy Indications: Suspected upper gastrointestinal bleeding Providers: DO Judi Schultz MD: 2. Inpatient 2. Inpatient, Yaz MCGILL NP Requesting Provider: Medicines: Propofol per Anesthesia Complications: No immediate complications. Procedure: Pre-Anesthesia Assessment: - Prior to the procedure, a History and Physical was performed, and patient medications and allergies were reviewed. The patient is competent. The risks and benefits of the procedure and the sedation options and risks were discussed with the patient. All questions were answered and informed consent was obtained. Patient identification and proposed procedure were verified by the physician, the nurse, the first responder and the projection technician in the endoscopy suite. Mental Status Examination: alert and oriented. Airway Examination: normal oropharyngeal airway and neck mobility. Respiratory Examination: clear to auscultation. CV Examination: normal. Prophylactic Antibiotics: The patient does not require prophylactic antibiotics. Prior Anticoagulants: The patient has taken no previous anticoagulant or antiplatelet agents. ASA Grade Assessment: III - A patient with severe systemic disease. After reviewing the risks and benefits, the patient was deemed in satisfactory condition to undergo the procedure. The anesthesia plan was to use monitored anesthesia care (MAC). Immediately prior to administration of medications, the patient was re-assessed for adequacy to receive sedatives. The heart rate, respiratory rate, oxygen saturations, blood pressure, adequacy of pulmonary ventilation, and response to care were monitored throughout the procedure. The physical status of the patient was re-assessed after the procedure. The Endoscope was introduced through the mouth, and advanced to the prepyloric region, stomach. The upper GI endoscopy was accomplished without difficulty. The patient tolerated the procedure well. Findings: A small hiatal hernia was present. Red blood was found in the entire examined stomach. A medium-sized, submucosal, non-circumferential mass with spurting bleeding and stigmata of recent bleeding was found on the lesser curvature of the stomach. To stop active bleeding, four hemostatic clips were successfully placed. There was no bleeding at the end of the procedure. Impression: - Small hiatal hernia. - Red blood in the entire stomach. - Rule out malignancy, gastric tumor on the lesser curvature of the stomach. Clips were placed. - No specimens collected. Recommendation: - Return patient to [facility] for ongoing care. - Clear liquid diet. - Continue present medications. Procedure Code(s): --- Professional --- 33795, 52, Esophagogastroduodenoscopy, flexible, transoral; with control of bleeding, any method Diagnosis Code(s): --- Professional --- K44.9, Diaphragmatic hernia without obstruction or gangrene K92.2, Gastrointestinal hemorrhage, unspecified D49.0, Neoplasm of unspecified behavior of digestive system CPT copyright 2019 [employer]. All rights reserved. The codes documented in this report are preliminary and upon deli department manager review may be revised to meet current compliance requirements. Sam Stanton DO 12/13/2020 8:20:51 AM Electronically signed by Sam Stanton DO Number of Addenda: 0 Note Initiated On: 12/13/2020 7:56 AM Estimated Blood Loss: Estimated blood loss was minimal.
[2020-12-13] MEDS ORDERED: ISOVUE-370 76% 100ML VIAL As Ordered ONE (09:10)
--- NOTE | 2020-12-13 10:11 | REP ---
INDICATION: bleeding gastric mass COMPARISON: None. TECHNIQUE: CT Scan of the abdomen was performed with intravenous administration of 100 cc of Isovue 370, without oral contrast. Sagittal, coronal and MIP reconstruction images are performed. FINDINGS: Lung bases: Unremarkable. There is a small hiatal hernia. Liver: Normal Gallbladder: Prior cholecystectomy. Spleen: Normal. Adrenals: There is a 1.5 cm right adrenal adenoma. Pancreas: Normal. Kidneys: There is a 3.5 cm cyst of the mid right kidney. There is no hydronephrosis bilaterally. Small and large bowel: There is left colonic diverticulosis. There is a large duodenal diverticulum of the 3rd portion of the duodenum. Free fluid: None. Abdominal aorta: No aneurysm or dissection. Moderate diffuse atherosclerotic calcifications are noted. 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 There is no stenosis of the superior mesenteric artery. Main renal arteries demonstrate no significant stenosis. There is no evidence of active extravasation in this patient with a stated history bleeding gastric mass. There are linear metallic structures in the gastric lumen. Adenopathy: None. Osseous structures: There are degenerative changes of the spine without compression deformity. IMPRESSION: No evidence of active extravasation in this patient with stated history of bleeding gastric mass. 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 <Electronically signed by Sam Daugherty > 12/13/20 3039
--- NOTE | 2020-12-13 12:55 | IPN ---
PROGRESS NOTE DATE: 12/13/2020 SUBJECTIVE: Margaret was seen in the PCU. She was admitted with upper gastrointestinal bleed. She had an upper endoscopy by Dr. Stanton. We discussed the results today. She has red blood in the entire stomach, has a submucosal medium size mass bleeding blood in the lesser curvature of the stomach, it was clipped with 4 hemostatic clips. There is concerned for malignancy. She is currently having no abdominal pain, chest pain or shortness of breath. Vital signs stable. 102/56, conversant, no distress. Lungs clear. Normal heart rhythm. Abdomen soft, nontender. No peripheral edema. White count 7.9, hemoglobin 7.5, platelets 100. Electrolytes: Sodium 148, potassium 3.6, BUN 28, creatinine 0.5, glucose 84. IMPRESSION: 1. Upper gastrointestinal bleed from gastric mass with acute blood loss anemia, status post clipping with four hemostatic clips. CT angiogram of the chest and abdomen is pending. Will transfuse her 2 more units of packed red blood cells. She has a high risk of rebleeding. 2. Right adrenal mass. Opt follow up advised. 3. Leukocytosis, suspect that this is just reactive. 4. Reflux sympathetic dystrophy. Continue her gabapentin 100 mg at bedtime.
[2020-12-13] MEDS: SODIUM CHLORIDE 0.9% INJ 10 ML SYR IV SCH (16:21)
[2020-12-14 00:30] VITALS: BP 101/49
[2020-12-14] MEDS: PANTOPRAZOLE 40MG VIAL (C9113 PER 1) IV SCH (03:10)
[2020-12-14 04:00] VITALS: BP 101/49
[2020-12-14] MEDS: NS 1,000 ML IV SCH (05:03)
[2020-12-14 05:57] LABS: BASO # 0.1 10^3/uL (0.0-0.2); EOS # 0.5 10^3/uL (0.0-0.5); HEMATOCRIT 27.7 % (36.0-47.0); HEMOGLOBIN 8.9 g/dl (12.0-15.5); LYMPH % 28.4 % (24.0-44.0); MEAN CORPUSCULAR HEMOGLOBIN 30.2 pg (27.0-33.0); MEAN CORPUSCULAR HGB CONC 32.1 g/dl (32.0-36.5); MEAN CORPUSCULAR VOLUME 93.9 fl (80.0-96.0); MONO # 0.6 10^3/uL (0.0-0.8); MONO % 8.1 % (2.0-8.0); NEUTROPHILS % 54.9 % (36.0-66.0); PLATELET COUNT, AUTOMATED 104 10^3/uL (150-450); RED BLOOD COUNT 2.95 10^6/uL (4.00-5.40); WHITE BLOOD COUNT 7.2 10^3/uL (4.0-10.0)
[2020-12-14 06:25] LABS: BLOOD UREA NITROGEN 13 MG/DL (7-18); CALCIUM LEVEL 7.8 MG/DL (8.8-10.2); CARBON DIOXIDE LEVEL 26 MEQ/L (21-32); CHLORIDE LEVEL 114 MEQ/L (98-107); CREATININE FOR GFR 0.56 MG/DL (0.55-1.30); GLOMERULAR FILTRATION RATE > 60.0 (>32); GLUCOSE, FASTING 80 MG/DL (70-100); MAGNESIUM LEVEL 1.8 MG/DL (1.8-2.4); POTASSIUM SERUM 3.2 MEQ/L (3.5-5.1); SODIUM LEVEL 145 MEQ/L (136-145)
[2020-12-14 08:00] VITALS: BP 93/44
[2020-12-14] MEDS: SUCRALFATE SUSP 1GM/10ML UD PO SCH ×2 (08:15→14:44)
--- NOTE | 2020-12-14 08:49 | IPNPDOC ---
Text Note Date of Service The patient was seen on 12/14/20. NOTE Gen. surgery. Dr. Stanton. The patient is an 85-year-old female admitted with upper GI bleed status post EGD as per Dr. Stanton 12/13/20. EGD indicated small hiatal hernia, blood in the stomach and gastric tumor in the lesser curvature of the stomach with clips placed. Patient had abdominal CTA 12/13/20 with no evidence of active extravasation. This morning, the patient states she is not having any abdominal pain. Denies nausea or vomiting. Reports flatus, no bowel movement. She is sitting on the side of the bed and working with physical therapy. Tolerating clear liquids. Afebrile, VSS Sitting on the side of the bed in NAD Abdomen is soft and nontender, nondistended. Extremities with no edema. The patient received additional 2 units PRBCs 12/13. Hemoglobin yesterday morning 7.5, this morning 8.9. Assessment/plan Upper GIB sS/P EGD as per Dr. Stanton 12/13/20. EGD indicated small hiatal hernia, blood in the stomach and gastric tumor in the lesser curvature of the stomach with clips placed. CTA indicated no active extravasation. The patient did receive 2 units of packed red blood cells 12/13. Hemoglobin this morning is 8.9 compared with 7.5 yesterday morning. The patient is reviewed by Dr. Stanton. Okay to advance to regular diet. Consider repeating hemoglobin at noon and if stable, from a surgical standpoint, would be okay for discharge this afternoon. Plan for outpatient follow-up with Dr. Stanton, plan for follow-up EGD in 1 month if gastric mass is still present possibly consider endoscopic ultrasound with biopsy. VS,Fishbone, I+O VS, Fishbone, I+O Laboratory Tests 12/14/20 05:38 Vital Signs Date Time Temp Pulse Resp B/P (MAP) Pulse Ox O2 Delivery O2 Flow Rate FiO2 12/14/20 08:00 98.6 50 18 93/44 (60) 96 Room Air I&O- Last 24 Hours up to 6 AM 12/14/20 06:00 Intake Total 2860 ml Output Total 1400 ml Balance 1460 ml Sondra Baumann Dec 14, 2020 08:49
[2020-12-14] MEDS ORDERED: POTASSIUM CHLORIDE 10% LIQ 20 MEQ/15 ML UDC PO ONE (09:30)
--- NOTE | 2020-12-14 09:50 | DSES ---
DISCHARGE SUMMARY DATE OF ADMISSION: 12/11/2020 DATE OF ANTICIPATED DISCHARGE: 12/14/2020 PRINCIPAL DIAGNOSIS: Upper gastrointestinal (GI) bleed due to acute blood loss anemia secondary to actively bleeding submucosal mass, lesser curvature of the stomach. PRINCIPAL PERFORMED: EGD with four hemostatic clips placed in bleeding mass in the stomach by Dr. Stanton on 12/13. HISTORY OF PRESENT ILLNESS: The patient was admitted with upper GI bleed. I assumed her care on 12/13; previous notes can be reviewed. HOSPITAL COURSE: She underwent EGD and bleeding submucosal mass was found. Clipping led to resolution of bleeding. 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 Her hemoglobin remained stable. She wants to go home today. We are going to advance her diet and if she tolerates that well into the afternoon, she should be stable for discharge. SIGNIFICANT LABORATORY DATA: She was transfused a total of six units packed red blood cells. Her hemoglobin today is 8.9 up from 7.5 yesterday. White count 7.2, platelets 104,000. Sodium 145, potassium 3.2 (supplemental potassium given), BUN 13, creatinine 0.5, glucose 80. DISPOSITION: I anticipate discharge today as long as she is tolerating her breakfast and lunch. DISCHARGE ACTIVITY: As tolerated. DISCHARGE DIET: No added salt. DISCHARGE INSTRUCTIONS: Avoid nonsteroidal anti-inflammatory drugs (NSAIDs) medications, aspirin, and anticoagulants. She will be following up with Dr. Stanton who feels she can be discharged today with outpatient follow-up after diet is advanced and a repeat hemoglobin at noon. He will do an EGD in the month and if the gastric mass is still present, then will refer her to [facility] for endoscopic ultrasound with biopsy. DISCHARGE MEDICATIONS: I anticipate discharge today on: 1. Gabapentin 100 mg q. h.s. 2. Carafate 1 gram a.c. and h.s. 3. Protonix 40 mg q. 12 hours. 4. Tylenol as needed.
[2020-12-14 12:00] VITALS: BP 103/57
[2020-12-14 12:07] LABS: HEMATOCRIT 29.7 % (36.0-47.0); HEMOGLOBIN 9.4 g/dl (12.0-15.5); MEAN CORPUSCULAR HGB CONC 31.6 g/dl (32.0-36.5); MEAN CORPUSCULAR VOLUME 94.9 fl (80.0-96.0); PLATELET COUNT, AUTOMATED 109 10^3/uL (150-450); RED BLOOD COUNT 3.13 10^6/uL (4.00-5.40); WHITE BLOOD COUNT 7.1 10^3/uL (4.0-10.0)
[2020-12-14] MEDS ORDERED: SUCR1ORA PO (15:36)
[2020-12-14] MEDS ORDERED: PANT40TA29 PO (15:36)
[2020-12-14 16:00] VITALS: BP 117/58
[2020-12-14] MEDS ORDERED: PANTOPRAZOLE 40MG TAB (PROTONIX) PO SCH (21:00)
== END 2020-12-14 17:11 | disposition home or self-care (01) | DRG 375 ==
LOC: M PCU 14:29
PROVIDERS: ADMIT Internal Medicine; ATTEND Family Medicine
PROC: 30233N1 Transfusion of Nonautologous Red Blood Cells into Peripheral Vein, Percutaneous Approach (ICD-10-PCS; principal; 2020-12-11)
PROC: 05HB33Z Insertion of Infusion Device into Right Basilic Vein, Percutaneous Approach (ICD-10-PCS; 2020-12-12)
PROC: 0W3P8ZZ Control Bleeding in Gastrointestinal Tract, Via Natural or Artificial Opening Endoscopic (ICD-10-PCS; 2020-12-13)
DX: D49.0 Neoplasm of unspecified behavior of digestive system (principal); K92.2 Gastrointestinal hemorrhage, unspecified; E87.2 Acidosis; D62 Acute posthemorrhagic anemia; Z79.899 Other long term (current) drug therapy; D72.829 Elevated white blood cell count, unspecified; G25.81 Restless legs syndrome; Z66 Do not resuscitate; K44.9 Diaphragmatic hernia without obstruction or gangrene

== ENCOUNTER → 2021-02-02 | Outpatient (CLI) | payer MEDICARE, BC, OTHER ==
[~2021-02-02] MED LIST changes: +PANT40TA29 PO; +SUCR1ORA PO
== END ==
LOC: M LABSMTC 09:33
PROVIDERS: ATTEND Anesthesiology
DX: Z01.812 Encounter for preprocedural laboratory examination (principal)

== ENCOUNTER 2021-02-07 06:48 | Day surgery (SDC) | payer MEDICARE, BC, OTHER ==
[~2021-02-07] VITALS: Ht 167.6 cm; Wt 73.9 kg
[~2021-02-07 06:48] MED LIST changes: +LIDOCAINE 2% 100MG/5ML SDV (FOR ANES.) As Ordered ONE; +NS 1,000 ML IV ONE; +fentaNYL 100 MCG/2 ML INJECTION (J3010) As Ordered ONE; +propofoL 200 MG/20 ML VIAL As Ordered ONE
--- NOTE | 2021-02-07 07:51 | ROOR ---
Patient Name: Margaret Nair Procedure Date: 02/07/2021 7:32 AM Date of : 1935 Age: 85 Room: [facility] Gender: Female Note Status: Finalized Procedure: Upper GI endoscopy Indications: Surveillance procedure, history of gastric bleeding with mass on prior endoscopy Providers: DO Judi Schultz MD: Yaz MCGILL NP Requesting Provider: Medicines: Propofol per Anesthesia Complications: No immediate complications. Procedure: Pre-Anesthesia Assessment: - Prior to the procedure, a History and Physical was performed, and patient medications and allergies were reviewed. The patient is competent. The risks and benefits of the procedure and the sedation options and risks were discussed with the patient. All questions were answered and informed consent was obtained. Patient identification and proposed procedure were verified by the physician, the nurse, the anesthesiologist and the process control technician in the endoscopy suite. Mental Status Examination: alert and oriented. Airway Examination: normal oropharyngeal airway and neck mobility. Respiratory Examination: clear to auscultation. CV Examination: normal. Prophylactic Antibiotics: The patient does not require prophylactic antibiotics. Prior Anticoagulants: The patient has taken no previous anticoagulant or antiplatelet agents. ASA Grade Assessment: II - A patient with mild systemic disease. After reviewing the risks and benefits, the patient was deemed in satisfactory condition to undergo the procedure. The anesthesia plan was to use monitored anesthesia care (MAC). Immediately prior to administration of medications, the patient was re-assessed for adequacy to receive sedatives. The heart rate, respiratory rate, oxygen saturations, blood pressure, adequacy of pulmonary ventilation, and response to care were monitored throughout the procedure. The physical status of the patient was re-assessed after the procedure. The Endoscope was introduced through the mouth, and advanced to the second part of duodenum. The upper GI endoscopy was accomplished without difficulty. The patient tolerated the procedure well. Findings: A small hiatal hernia was present. A medium-sized, submucosal, non-circumferential mass with no bleeding and no stigmata of recent bleeding was found in the gastric fundus. Biopsies were taken with a cold forceps for histology. Estimated blood loss was minimal. Localized mild inflammation characterized by adherent blood, congestion (edema) and erythema was found in the prepyloric region of the stomach. Impression: - Small hiatal hernia. - Rule out malignancy, gastric tumor in the gastric fundus. Biopsied. - Gastritis. Recommendation: - Patient has a contact number available for emergencies. The signs and symptoms of potential delayed complications were discussed with the patient. Return to normal activities tomorrow. Written discharge instructions were provided to the patient. - Await pathology results. - Return to my office at appointment to be scheduled. Procedure Code(s): --- Professional --- 06318, Esophagogastroduodenoscopy, flexible, transoral; with biopsy, single or multiple Diagnosis Code(s): --- Professional --- K44.9, Diaphragmatic hernia without obstruction or gangrene D49.0, Neoplasm of unspecified behavior of digestive system K29.70, Gastritis, unspecified, without bleeding CPT copyright 2019 [employer]. All rights reserved. The codes documented in this report are preliminary and upon sports complex attendant review may be revised to meet current compliance requirements. Sam Stanton DO 02/07/2021 7:50:37 AM Electronically signed by Sam Stanton DO Number of Addenda: 0 Note Initiated On: 02/07/2021 7:32 AM Estimated Blood Loss: Estimated blood loss was minimal.
[2021-02-07 08:09] VITALS: BP 129/59
== END 2021-02-07 08:13 | disposition home or self-care (01) ==
LOC: M OPP 06:48
PROVIDERS: ATTEND Surgery
DX: K44.9 Diaphragmatic hernia without obstruction or gangrene (principal); D49.0 Neoplasm of unspecified behavior of digestive system; K21.9 Gastro-esophageal reflux disease without esophagitis; Z79.899 Other long term (current) drug therapy
CPT/HCPCS: 43239; 88305; J3010

== ENCOUNTER → 2021-03-13 | Outpatient (CLI) | payer MEDICARE, BC, OTHER ==
[~2021-03-13] MED LIST changes: +D3 +TAB PO; +GASTROGRAFIN SOLUTION 30ML (Q9963) As Ordered ONE; +IMAT100TAB PO; +ISOVUE-370 76% 100ML VIAL As Ordered ONE; -LIDOCAINE 2% 100MG/5ML SDV (FOR ANES.) As Ordered ONE; -NS 1,000 ML IV ONE; +OCUVTAB8 PO; -fentaNYL 100 MCG/2 ML INJECTION (J3010) As Ordered ONE; -propofoL 200 MG/20 ML VIAL As Ordered ONE
== END ==
LOC: M RAD 13:05
PROVIDERS: ATTEND Colon & Rectal Surgery
DX: C49.A2 Gastrointestinal stromal tumor of stomach (principal)
CPT/HCPCS: 71260; 74177; Q9963; Q9967

== ENCOUNTER → 2021-05-14 | Outpatient (CLI) | payer MEDICARE, BC, OTHER ==
[~2021-05-14] MED LIST changes: -D3 +TAB PO; -GASTROGRAFIN SOLUTION 30ML (Q9963) As Ordered ONE; -ISOVUE-370 76% 100ML VIAL As Ordered ONE; -OCUVTAB8 PO
--- NOTE | 2021-05-15 10:49 | REP ---
INDICATION: STAGING GASTROINTESTINAL CANCER. COMPARISON: Prior CT examination chest abdomen pelvis of 03/13/2021. There are no prior PET CTs for comparison. TECHNIQUE: After the intravenous administration of 9.48 mCi of FDG 18 triplane whole-body PET-CT was performed from the skull base to the mid thigh. FINDINGS: The known gastric mass is hypermetabolic having a maximal SUV value of 5.18. There is some hypermetabolic activity seen in the gastroesophageal junction which is a known PET-CT pit fall. This region has a maximal SUV value of 3.35. No other areas of abnormal hypermetabolic activity are seen in the neck, chest, abdomen, or pelvis. IMPRESSION: The known gastric mass is hypermetabolic as described above. Other findings as described above. <Electronically signed by Zeferino Evangelista > 05/15/21 0516
== END ==
LOC: M PLARAD 14:49
PROVIDERS: ATTEND Internal Medicine Hematology & Oncology
DX: C49.A9 Gastrointestinal stromal tumor of other sites (principal)
CPT/HCPCS: 78815; A9552

== ENCOUNTER → 2021-07-17 | Outpatient (REF) | payer MEDICARE, BC, OTHER ==
[2021-07-17 11:32] LABS: BASO # 0.1 10^3/uL (0.0-0.2); BASO % 1.3 % (0.0-1.0); EOS # 0.7 10^3/uL (0.0-0.5); EOS % 11.9 % (0.0-3.0); HEMOGLOBIN 11.3 g/dl (12.0-15.5); LYMPH # 1.4 10^3/uL (1.5-5.0); LYMPH % 22.9 % (24.0-44.0); MEAN CORPUSCULAR HEMOGLOBIN 31.3 pg (27.0-33.0); MEAN CORPUSCULAR HGB CONC 31.4 g/dl (32.0-36.5); MEAN CORPUSCULAR VOLUME 99.7 fl (80.0-96.0); MONO # 0.6 10^3/uL (0.0-0.8); MONO % 9.8 % (2.0-8.0); NEUTROPHILS # 3.4 10^3/uL (1.5-8.5); NEUTROPHILS % 53.9 % (36.0-66.0); PLATELET COUNT, AUTOMATED 210 10^3/uL (150-450); RED BLOOD COUNT 3.61 10^6/uL (4.00-5.40); WHITE BLOOD COUNT 6.2 10^3/uL (4.0-10.0)
[2021-07-17 12:31] LABS: ALBUMIN 3.5 GM/DL (3.2-5.2); BILIRUBIN,TOTAL 0.5 MG/DL (0.2-1.0); CALCIUM LEVEL 8.5 MG/DL (8.8-10.2); CREATININE FOR GFR 0.96 MG/DL (0.55-1.30); GLOMERULAR FILTRATION RATE 58.9 (>32); THYROID STIMULATING HORMONE 1.91 uIU/ML (0.358-3.740); TOTAL PROTEIN 6.7 GM/DL (6.4-8.2)
== END ==
LOC: M LABDRAWC 11:07
PROVIDERS: ATTEND Internal Medicine Hematology & Oncology
DX: C49.A9 Gastrointestinal stromal tumor of other sites (principal); Z79.899 Other long term (current) drug therapy

== ENCOUNTER → 2021-08-20 | Outpatient (REF) | payer MEDICARE, BC, OTHER ==
[~2021-08-20] MED LIST changes: +D3 +TAB PO; +OCUVTAB8 PO
[2021-08-20 12:07] LABS: BASO # 0.1 10^3/uL (0.0-0.2); BASO % 1.2 % (0.0-1.0); EOS # 0.8 10^3/uL (0.0-0.5); EOS % 13.1 % (0.0-3.0); HEMATOCRIT 36.5 % (36.0-47.0); HEMOGLOBIN 11.4 g/dl (12.0-15.5); LYMPH # 1.4 10^3/uL (1.5-5.0); LYMPH % 21.6 % (24.0-44.0); MEAN CORPUSCULAR HEMOGLOBIN 31.7 pg (27.0-33.0); MEAN CORPUSCULAR HGB CONC 31.2 g/dl (32.0-36.5); MEAN CORPUSCULAR VOLUME 101.4 fl (80.0-96.0); MONO # 0.5 10^3/uL (0.0-0.8); MONO % 7.6 % (2.0-8.0); NEUTROPHILS # 3.6 10^3/uL (1.5-8.5); PLATELET COUNT, AUTOMATED 195 10^3/uL (150-450); WHITE BLOOD COUNT 6.4 10^3/uL (4.0-10.0)
[2021-08-20 12:34] LABS: ALBUMIN 3.7 GM/DL (3.2-5.2); ALT/SGPT 21 U/L (12-78); BILIRUBIN,TOTAL 0.5 MG/DL (0.2-1.0); BLOOD UREA NITROGEN 17 MG/DL (7-18); CALCIUM LEVEL 8.7 MG/DL (8.8-10.2); CARBON DIOXIDE LEVEL 29 MEQ/L (21-32); CHLORIDE LEVEL 105 MEQ/L (98-107); CREATININE FOR GFR 0.93 MG/DL (0.55-1.30); GLOMERULAR FILTRATION RATE > 60.0 (>32); GLUCOSE, FASTING 104 MG/DL (70-100); POTASSIUM SERUM 4.3 MEQ/L (3.5-5.1); SODIUM LEVEL 141 MEQ/L (136-145); TOTAL PROTEIN 6.6 GM/DL (6.4-8.2)
[2021-08-23 11:44] LABS: FERRITIN 72 NG/ML (8-252)
[2021-08-23 11:46] LABS: TOTAL 25(OH) VITAMIN D 21.3 NG/ML (30.0-100.0)
[2021-08-23 11:47] LABS: FOLATE 5.9 NG/ML; VITAMIN B12 LEVEL 491 PG/ML
== END ==
LOC: M LABDRAWC 11:15
PROVIDERS: ATTEND Internal Medicine Hematology & Oncology
DX: C49.A9 Gastrointestinal stromal tumor of other sites (principal); Z79.899 Other long term (current) drug therapy

== ENCOUNTER → 2021-10-22 | Outpatient (REF) | payer MEDICARE, BC, OTHER ==
[2021-10-22 11:41] LABS: BASO # 0.1 10^3/uL (0.0-0.2); BASO % 0.9 % (0.0-1.0); EOS # 0.6 10^3/uL (0.0-0.5); EOS % 10.3 % (0.0-3.0); HEMATOCRIT 36.8 % (36.0-47.0); HEMOGLOBIN 11.7 g/dl (12.0-15.5); LYMPH # 1.2 10^3/uL (1.5-5.0); LYMPH % 21.8 % (24.0-44.0); MEAN CORPUSCULAR HEMOGLOBIN 32.4 pg (27.0-33.0); MEAN CORPUSCULAR HGB CONC 31.8 g/dl (32.0-36.5); MEAN CORPUSCULAR VOLUME 101.9 fl (80.0-96.0); MONO # 0.6 10^3/uL (0.0-0.8); MONO % 11.4 % (2.0-8.0); NEUTROPHILS # 3.1 10^3/uL (1.5-8.5); NEUTROPHILS % 55.2 % (36.0-66.0); PLATELET COUNT, AUTOMATED 154 10^3/uL (150-450); RED BLOOD COUNT 3.61 10^6/uL (4.00-5.40); WHITE BLOOD COUNT 5.6 10^3/uL (4.0-10.0)
[2021-10-22 12:15] LABS: ALBUMIN 3.6 GM/DL (3.2-5.2); BILIRUBIN,TOTAL 0.7 MG/DL (0.2-1.0); CALCIUM LEVEL 8.6 MG/DL (8.8-10.2); CREATININE FOR GFR 0.98 MG/DL (0.55-1.30); GLOMERULAR FILTRATION RATE 57.4 (>32); POTASSIUM SERUM 4.2 MEQ/L (3.5-5.1); TOTAL PROTEIN 6.5 GM/DL (6.4-8.2)
== END ==
LOC: M LABDRAWC 11:23
PROVIDERS: ATTEND Internal Medicine Hematology & Oncology
DX: C49.A0 Gastrointestinal stromal tumor, unspecified site (principal); Z79.899 Other long term (current) drug therapy

== ENCOUNTER → 2021-11-08 | Outpatient (CLI) | payer MEDICARE, BC, OTHER ==
[~2021-11-08] MED LIST changes: +ISOVUE-370 76% 100ML VIAL As Ordered ONE
== END ==
LOC: M RAD 08-03 12:29
DX: C49.A2 Gastrointestinal stromal tumor of stomach (principal); R91.8 Other nonspecific abnormal finding of lung field
CPT/HCPCS: 71260; Q9967

== ENCOUNTER → 2021-12-03 | Outpatient (REF) | payer MEDICARE, OTHER, BC ==
[~2021-12-03] MED LIST changes: -ISOVUE-370 76% 100ML VIAL As Ordered ONE
[2021-12-03 16:21] LABS: BASO # 0.1 10^3/uL (0.0-0.2); BASO % 1.8 % (0.0-1.0); EOS # 0.7 10^3/uL (0.0-0.5); EOS % 11.4 % (0.0-3.0); HEMATOCRIT 35.9 % (36.0-47.0); HEMOGLOBIN 11.5 g/dl (12.0-15.5); LYMPH # 1.3 10^3/uL (1.5-5.0); LYMPH % 21.6 % (24.0-44.0); MEAN CORPUSCULAR HEMOGLOBIN 32.7 pg (27.0-33.0); MONO # 0.6 10^3/uL (0.0-0.8); MONO % 9.5 % (2.0-8.0); NEUTROPHILS # 3.3 10^3/uL (1.5-8.5); NEUTROPHILS % 55.4 % (36.0-66.0); PLATELET COUNT, AUTOMATED 249 10^3/uL (150-450); RED BLOOD COUNT 3.52 10^6/uL (4.00-5.40)
[2021-12-03 16:22] LABS: ALBUMIN 3.6 GM/DL (3.2-5.2); BILIRUBIN,TOTAL 0.7 MG/DL (0.2-1.0); CALCIUM LEVEL 8.5 MG/DL (8.8-10.2); CREATININE FOR GFR 0.95 MG/DL (0.55-1.30); GLOMERULAR FILTRATION RATE 59.5 (>32); POTASSIUM SERUM 3.8 MEQ/L (3.5-5.1); TOTAL PROTEIN 6.4 GM/DL (6.4-8.2)
== END ==
LOC: M LABDRAWC 15:35
PROVIDERS: ATTEND Internal Medicine Hematology & Oncology
DX: C49.A0 Gastrointestinal stromal tumor, unspecified site (principal)

== ENCOUNTER → 2021-12-31 | Outpatient (REF) | payer MEDICARE, BC, OTHER ==
[2021-12-31 11:45] LABS: BASO # 0.1 10^3/uL (0.0-0.2); BASO % 1.7 % (0.0-1.0); EOS # 0.5 10^3/uL (0.0-0.5); EOS % 9.2 % (0.0-3.0); HEMATOCRIT 34.3 % (36.0-47.0); HEMOGLOBIN 10.9 g/dl (12.0-15.5); LYMPH # 1.1 10^3/uL (1.5-5.0); LYMPH % 19.9 % (24.0-44.0); MEAN CORPUSCULAR HEMOGLOBIN 32.7 pg (27.0-33.0); MEAN CORPUSCULAR HGB CONC 31.8 g/dl (32.0-36.5); MONO # 0.6 10^3/uL (0.0-0.8); MONO % 10.3 % (2.0-8.0); NEUTROPHILS # 3.4 10^3/uL (1.5-8.5); NEUTROPHILS % 58.7 % (36.0-66.0); PLATELET COUNT, AUTOMATED 196 10^3/uL (150-450); RED BLOOD COUNT 3.33 10^6/uL (4.00-5.40); WHITE BLOOD COUNT 5.7 10^3/uL (4.0-10.0)
[2021-12-31 12:12] LABS: ALBUMIN 3.5 GM/DL (3.2-5.2); BILIRUBIN,TOTAL 0.7 MG/DL (0.2-1.0); CALCIUM LEVEL 8.6 MG/DL (8.8-10.2); CREATININE FOR GFR 0.98 MG/DL (0.55-1.30); GLOMERULAR FILTRATION RATE 57.4 (>32); POTASSIUM SERUM 4.2 MEQ/L (3.5-5.1); TOTAL PROTEIN 6.1 GM/DL (6.4-8.2)
== END ==
LOC: M LABDRAWC 11:27
PROVIDERS: ATTEND Internal Medicine Hematology & Oncology
DX: C49.A0 Gastrointestinal stromal tumor, unspecified site (principal)

== ENCOUNTER → 2022-01-15 | Outpatient (CLI) | payer MEDICARE, BC, OTHER | LOC: M SOG 15:14 | PROVIDERS: ATTEND Orthopaedic Surgery | DX: M54.50 Low back pain, unspecified (principal) ==

== ENCOUNTER → 2022-02-06 | Outpatient (REF) | payer MEDICARE, BC, OTHER ==
[2022-02-06 16:21] LABS: ALBUMIN 3.5 GM/DL (3.2-5.2); ALT/SGPT 21 U/L (12-78); BILIRUBIN,TOTAL 0.5 MG/DL (0.2-1.0); BLOOD UREA NITROGEN 16 MG/DL (7-18); CALCIUM LEVEL 8.7 MG/DL (8.8-10.2); CARBON DIOXIDE LEVEL 32 MEQ/L (21-32); CHLORIDE LEVEL 108 MEQ/L (98-107); GLOMERULAR FILTRATION RATE > 60.0 (>32); GLUCOSE, FASTING 89 MG/DL (70-100); POTASSIUM SERUM 4.1 MEQ/L (3.5-5.1); SODIUM LEVEL 141 MEQ/L (136-145); TOTAL PROTEIN 6.4 GM/DL (6.4-8.2)
[2022-02-06 16:27] LABS: BASO # 0.1 10^3/uL (0.0-0.2); BASO % 1.5 % (0.0-1.0); EOS # 0.5 10^3/uL (0.0-0.5); EOS % 7.1 % (0.0-3.0); HEMATOCRIT 35.4 % (36.0-47.0); HEMOGLOBIN 11.2 g/dl (12.0-15.5); LYMPH # 1.5 10^3/uL (1.5-5.0); LYMPH % 22.3 % (24.0-44.0); MEAN CORPUSCULAR HGB CONC 31.6 g/dl (32.0-36.5); MEAN CORPUSCULAR VOLUME 101.1 fl (80.0-96.0); MONO # 0.5 10^3/uL (0.0-0.8); MONO % 7.8 % (2.0-8.0); NEUTROPHILS # 4.1 10^3/uL (1.5-8.5); NEUTROPHILS % 61.2 % (36.0-66.0); PLATELET COUNT, AUTOMATED 249 10^3/uL (150-450); WHITE BLOOD COUNT 6.8 10^3/uL (4.0-10.0)
== END ==
LOC: M LABDRAWC 15:47
PROVIDERS: ATTEND Specialist
DX: C49.A2 Gastrointestinal stromal tumor of stomach (principal)

== ENCOUNTER → 2022-02-06 | Outpatient (REF) | payer MEDICARE, BC, OTHER ==
[2022-02-06 16:22] LABS: BLOOD UREA NITROGEN 16 MG/DL (7-18); CREATININE FOR GFR 0.89 MG/DL (0.55-1.30); GLOMERULAR FILTRATION RATE > 60.0 (>32)
== END ==
LOC: M LAB REF 15:55
PROVIDERS: ATTEND Colon & Rectal Surgery
DX: C49.A2 Gastrointestinal stromal tumor of stomach (principal)

== ENCOUNTER → 2022-02-11 | Outpatient (CLI) | payer MEDICARE, BC, OTHER ==
[~2022-02-11] MED LIST changes: +GASTROGRAFIN SOLUTION 30ML (Q9963) As Ordered ONE; +ISOVUE-370 76% 100ML VIAL As Ordered ONE
== END ==
LOC: M RAD 08:29
PROVIDERS: ATTEND Colon & Rectal Surgery
DX: C49.A2 Gastrointestinal stromal tumor of stomach (principal); N28.1 Cyst of kidney, acquired; M43.17 Spondylolisthesis, lumbosacral region; M43.16 Spondylolisthesis, lumbar region; D35.01 Benign neoplasm of right adrenal gland; K44.9 Diaphragmatic hernia without obstruction or gangrene
CPT/HCPCS: 74177; Q9963; Q9967

== ENCOUNTER → 2022-03-13 | Outpatient (REF) | payer MEDICARE, OTHER ==
[~2022-03-13] MED LIST changes: -GASTROGRAFIN SOLUTION 30ML (Q9963) As Ordered ONE; -ISOVUE-370 76% 100ML VIAL As Ordered ONE
[2022-03-13 12:09] LABS: BASO # 0.1 10^3/uL (0.0-0.2); BASO % 1.8 % (0.0-1.0); EOS # 0.4 10^3/uL (0.0-0.5); EOS % 8.2 % (0.0-3.0); HEMATOCRIT 35.1 % (36.0-47.0); HEMOGLOBIN 11.3 g/dl (12.0-15.5); LYMPH # 1.3 10^3/uL (1.5-5.0); LYMPH % 26.9 % (24.0-44.0); MEAN CORPUSCULAR HEMOGLOBIN 33.3 pg (27.0-33.0); MEAN CORPUSCULAR HGB CONC 32.2 g/dl (32.0-36.5); MEAN CORPUSCULAR VOLUME 103.5 fl (80.0-96.0); MONO # 0.5 10^3/uL (0.0-0.8); MONO % 10.6 % (2.0-8.0); NEUTROPHILS # 2.6 10^3/uL (1.5-8.5); NEUTROPHILS % 52.3 % (36.0-66.0); PLATELET COUNT, AUTOMATED 163 10^3/uL (150-450); RED BLOOD COUNT 3.39 10^6/uL (4.00-5.40)
[2022-03-13 13:32] LABS: ALBUMIN 3.7 GM/DL (3.2-5.2); ALT/SGPT 19 U/L (12-78); BILIRUBIN,TOTAL 0.6 MG/DL (0.2-1.0); BLOOD UREA NITROGEN 14 MG/DL (7-18); CALCIUM LEVEL 8.7 MG/DL (8.8-10.2); CARBON DIOXIDE LEVEL 31 MEQ/L (21-32); CHLORIDE LEVEL 106 MEQ/L (98-107); CREATININE FOR GFR 0.87 MG/DL (0.55-1.30); GLOMERULAR FILTRATION RATE > 60.0 (>32); GLUCOSE, FASTING 80 MG/DL (70-100); POTASSIUM SERUM 4.2 MEQ/L (3.5-5.1); SODIUM LEVEL 140 MEQ/L (136-145); TOTAL PROTEIN 6.5 GM/DL (6.4-8.2)
== END ==
LOC: M LABDRAWC 09:14
PROVIDERS: ATTEND Nurse Practitioner
DX: C49.A0 Gastrointestinal stromal tumor, unspecified site (principal)

== ENCOUNTER → 2022-04-11 | Outpatient (CLI) | payer MEDICARE, BC, OTHER ==
[~2022-04-11] MED LIST changes: +GASTROGRAFIN SOLUTION 30ML (Q9963) As Ordered ONE; +ISOVUE-370 76% 100ML VIAL As Ordered ONE
== END ==
LOC: M RAD 09:17
PROVIDERS: ATTEND Specialist
DX: C49.A0 Gastrointestinal stromal tumor, unspecified site (principal)
CPT/HCPCS: 71260; 74177; Q9963; Q9967

== ENCOUNTER → 2022-04-29 | Outpatient (REF) | payer MEDICARE, OTHER ==
[~2022-04-29] MED LIST changes: -GASTROGRAFIN SOLUTION 30ML (Q9963) As Ordered ONE; -ISOVUE-370 76% 100ML VIAL As Ordered ONE
[2022-04-29 12:05] LABS: BASO # 0.1 10^3/uL (0.0-0.2); EOS # 0.7 10^3/uL (0.0-0.5); EOS % 12.6 % (0.0-3.0); HEMATOCRIT 33.3 % (36.0-47.0); HEMOGLOBIN 10.6 g/dl (12.0-15.5); LYMPH # 1.2 10^3/uL (1.5-5.0); LYMPH % 22.6 % (24.0-44.0); MEAN CORPUSCULAR HEMOGLOBIN 33.2 pg (27.0-33.0); MEAN CORPUSCULAR HGB CONC 31.8 g/dl (32.0-36.5); MEAN CORPUSCULAR VOLUME 104.4 fl (80.0-96.0); MONO # 0.5 10^3/uL (0.0-0.8); MONO % 8.8 % (2.0-8.0); NEUTROPHILS % 53.8 % (36.0-66.0); PLATELET COUNT, AUTOMATED 170 10^3/uL (150-450); RED BLOOD COUNT 3.19 10^6/uL (4.00-5.40); WHITE BLOOD COUNT 5.5 10^3/uL (4.0-10.0)
[2022-04-29 13:19] LABS: ALBUMIN 3.5 GM/DL (3.2-5.2); ALT/SGPT 17 U/L (12-78); BILIRUBIN,TOTAL 0.7 MG/DL (0.2-1.0); BLOOD UREA NITROGEN 15 MG/DL (7-18); CALCIUM LEVEL 8.6 MG/DL (8.8-10.2); CARBON DIOXIDE LEVEL 30 MEQ/L (21-32); CHLORIDE LEVEL 108 MEQ/L (98-107); CREATININE FOR GFR 0.92 MG/DL (0.55-1.30); GLOMERULAR FILTRATION RATE > 60.0 (>32); GLUCOSE, FASTING 80 MG/DL (70-100); POTASSIUM SERUM 4.2 MEQ/L (3.5-5.1); SODIUM LEVEL 142 MEQ/L (136-145); TOTAL PROTEIN 6.2 GM/DL (6.4-8.2)
== END ==
LOC: M LABDRAWC 11:24
PROVIDERS: ATTEND Nurse Practitioner
DX: C49.A0 Gastrointestinal stromal tumor, unspecified site (principal)

== ENCOUNTER → 2022-06-06 | Outpatient (REF) | payer MEDICARE, BC, OTHER ==
[2022-06-06 11:24] LABS: BASO # 0.1 10^3/uL (0.0-0.2); BASO % 1.2 % (0.0-1.0); EOS # 0.5 10^3/uL (0.0-0.5); EOS % 6.9 % (0.0-3.0); HEMATOCRIT 30.8 % (36.0-47.0); HEMOGLOBIN 9.8 g/dl (12.0-15.5); LYMPH # 1.2 10^3/uL (1.5-5.0); LYMPH % 17.1 % (24.0-44.0); MEAN CORPUSCULAR HEMOGLOBIN 32.5 pg (27.0-33.0); MEAN CORPUSCULAR HGB CONC 31.8 g/dl (32.0-36.5); MONO # 0.6 10^3/uL (0.0-0.8); MONO % 8.1 % (2.0-8.0); NEUTROPHILS # 4.6 10^3/uL (1.5-8.5); PLATELET COUNT, AUTOMATED 240 10^3/uL (150-450); RED BLOOD COUNT 3.02 10^6/uL (4.00-5.40)
[2022-06-06 12:38] LABS: ALBUMIN 3.1 GM/DL (3.2-5.2); ALT/SGPT 14 U/L (12-78); BILIRUBIN,TOTAL 0.6 MG/DL (0.2-1.0); BLOOD UREA NITROGEN 13 MG/DL (7-18); CALCIUM LEVEL 8.5 MG/DL (8.8-10.2); CARBON DIOXIDE LEVEL 29 MEQ/L (21-32); CHLORIDE LEVEL 105 MEQ/L (98-107); FERRITIN 286 NG/ML (8-252); GLOMERULAR FILTRATION RATE > 60.0 (>32); GLUCOSE, FASTING 104 MG/DL (70-100); IRON (FE) 48 UG/DL (50-170); PERCENT SATURATION 18.8 % (13.2-45.0); POTASSIUM SERUM 3.9 MEQ/L (3.5-5.1); SODIUM LEVEL 139 MEQ/L (136-145); TOTAL IRON BINDING CAPACITY 255 UG/DL (250-450); TOTAL PROTEIN 6.3 GM/DL (6.4-8.2)
[2022-06-07 15:22] LABS: VITAMIN B12 LEVEL 377 PG/ML (247-911)
== END ==
LOC: M LABDRAWC 11:03
PROVIDERS: ATTEND Nurse Practitioner
DX: C49.A0 Gastrointestinal stromal tumor, unspecified site (principal)

== ENCOUNTER → 2022-06-28 | Outpatient (CLI) | payer MEDICARE, BC, OTHER ==
[~2022-06-28] MED LIST changes: +GASTROGRAFIN SOLUTION 30ML (Q9963) As Ordered ONE; +ISOVUE-370 76% 100ML VIAL As Ordered ONE
== END ==
LOC: M RAD 09:11
PROVIDERS: ATTEND Nurse Practitioner
DX: C49.A0 Gastrointestinal stromal tumor, unspecified site (principal)
CPT/HCPCS: 74177; Q9963; Q9967

== ENCOUNTER → 2022-07-10 | Outpatient (REF) | payer MEDICARE, BC, OTHER ==
[~2022-07-10] MED LIST changes: -GASTROGRAFIN SOLUTION 30ML (Q9963) As Ordered ONE; -ISOVUE-370 76% 100ML VIAL As Ordered ONE
[2022-07-10 18:13] LABS: BASO # 0.1 10^3/uL (0.0-0.2); BASO % 1.7 % (0.0-1.0); EOS # 0.4 10^3/uL (0.0-0.5); EOS % 5.7 % (0.0-3.0); HEMATOCRIT 35.7 % (36.0-47.0); HEMOGLOBIN 11.1 g/dl (12.0-15.5); LYMPH # 1.4 10^3/uL (1.5-5.0); LYMPH % 21.1 % (24.0-44.0); MEAN CORPUSCULAR HEMOGLOBIN 32.2 pg (27.0-33.0); MEAN CORPUSCULAR HGB CONC 31.1 g/dl (32.0-36.5); MEAN CORPUSCULAR VOLUME 103.5 fl (80.0-96.0); MONO # 0.6 10^3/uL (0.0-0.8); MONO % 9.4 % (2.0-8.0); NEUTROPHILS % 61.8 % (36.0-66.0); PLATELET COUNT, AUTOMATED 206 10^3/uL (150-450); RED BLOOD COUNT 3.45 10^6/uL (4.00-5.40); WHITE BLOOD COUNT 6.5 10^3/uL (4.0-10.0)
[2022-07-10 18:55] LABS: ALBUMIN 3.4 GM/DL (3.2-5.2); ALT/SGPT 18 U/L (12-78); BILIRUBIN,TOTAL 0.5 MG/DL (0.2-1.0); BLOOD UREA NITROGEN 13 MG/DL (7-18); CALCIUM LEVEL 8.8 MG/DL (8.8-10.2); CARBON DIOXIDE LEVEL 29 MEQ/L (21-32); CHLORIDE LEVEL 106 MEQ/L (98-107); CREATININE FOR GFR 0.91 MG/DL (0.55-1.30); GLOMERULAR FILTRATION RATE > 60.0 (>32); GLUCOSE, FASTING 96 MG/DL (70-100); POTASSIUM SERUM 4.4 MEQ/L (3.5-5.1); SODIUM LEVEL 141 MEQ/L (136-145); TOTAL PROTEIN 6.4 GM/DL (6.4-8.2)
== END ==
LOC: M LABDRAWC 17:31
PROVIDERS: ATTEND Nurse Practitioner
DX: C49.A0 Gastrointestinal stromal tumor, unspecified site (principal)

== ENCOUNTER → 2022-08-06 | Outpatient (REF) | payer MEDICARE, OTHER | LOC: M SFHCCLAY 08:35 | PROVIDERS: ATTEND Nurse Practitioner Family | DX: Z20.822 Contact with and (suspected) exposure to COVID-19 (principal) ==

== ENCOUNTER 2022-08-09 07:07 | Day surgery (SDC) | payer MEDICARE, BC, OTHER ==
[~2022-08-09] VITALS: Ht 165.1 cm; Wt 65.7 kg
[~2022-08-09 07:07] MED LIST changes: +NS 1,000 ML IV ONE
[2022-08-09] MEDS ORDERED: fentaNYL 100 MCG/2 ML INJECTION As Ordered ONE (08:20)
[2022-08-09 09:06] VITALS: BP 142/67
== END 2022-08-09 19:19 | disposition home or self-care (01) ==
LOC: M OPP 07:07
PROVIDERS: ATTEND Internal Medicine Gastroenterology
DX: K22.89 Other specified disease of esophagus (principal); K21.00 Gastro-esophageal reflux disease with esophagitis, without bleeding; K29.70 Gastritis, unspecified, without bleeding; D37.1 Neoplasm of uncertain behavior of stomach; Z79.899 Other long term (current) drug therapy; Z92.3 Personal history of irradiation; Z96.0 Presence of urogenital implants
CPT/HCPCS: 43239; 88305; J3010

== ENCOUNTER → 2022-09-23 | Outpatient (CLI) | payer MEDICARE, BC, OTHER ==
[~2022-09-23] MED LIST changes: -NS 1,000 ML IV ONE
== END ==
LOC: M CARPUL 08:47
PROVIDERS: ATTEND Nurse Practitioner Family
DX: I35.0 Nonrheumatic aortic (valve) stenosis (principal); I27.20 Pulmonary hypertension, unspecified; I34.0 Nonrheumatic mitral (valve) insufficiency; R01.1 Cardiac murmur, unspecified

== ENCOUNTER → 2022-10-10 | Outpatient (REF) | payer MEDICARE, BC, OTHER ==
[2022-10-10 17:43] LABS: BASO # 0.1 10^3/uL (0.0-0.2); BASO % 1.3 % (0.0-1.0); EOS # 0.4 10^3/uL (0.0-0.5); EOS % 6.6 % (0.0-3.0); HEMATOCRIT 34.5 % (36.0-47.0); HEMOGLOBIN 11.1 g/dl (12.0-15.5); LYMPH # 1.3 10^3/uL (1.5-5.0); LYMPH % 23.8 % (24.0-44.0); MEAN CORPUSCULAR HGB CONC 32.2 g/dl (32.0-36.5); MEAN CORPUSCULAR VOLUME 102.7 fl (80.0-96.0); MONO # 0.6 10^3/uL (0.0-0.8); MONO % 10.1 % (2.0-8.0); NEUTROPHILS # 3.2 10^3/uL (1.5-8.5); PLATELET COUNT, AUTOMATED 158 10^3/uL (150-450); RED BLOOD COUNT 3.36 10^6/uL (4.00-5.40); WHITE BLOOD COUNT 5.4 10^3/uL (4.0-10.0)
[2022-10-10 17:48] LABS: ALBUMIN 3.7 G/DL (3.2-5.2); ALKALINE PHOSPHATASE 77 U/L (46-116); ALT/SGPT 16 U/L (7.0-40); AST/SGOT 28 U/L (<34); BILIRUBIN,TOTAL 0.7 MG/DL (0.3-1.2); BLOOD UREA NITROGEN 16 MG/DL (9-23); CALCIUM LEVEL 8.6 MG/DL (8.3-10.6); CARBON DIOXIDE LEVEL 30 MMOL/L (20-31); CHLORIDE LEVEL 103 MMOL/L (98-107); GLOMERULAR FILTRATION RATE > 60.0 (>32); GLUCOSE, FASTING 104 MG/DL (74-106); POTASSIUM SERUM 3.9 MMOL/L (3.5-5.1); SODIUM LEVEL 141 MMOL/L (136-145); TOTAL PROTEIN 6.2 G/DL (5.7-8.2)
== END ==
LOC: M LABDRAWC 17:10
PROVIDERS: ATTEND Internal Medicine Hematology & Oncology
DX: C49.A0 Gastrointestinal stromal tumor, unspecified site (principal)

== ENCOUNTER → 2023-01-10 | Outpatient (REF) | payer MEDICARE, BC, OTHER ==
[2023-01-10 11:43] LABS: BASO # 0.1 10^3/uL (0.0-0.2); BASO % 1.5 % (0.0-1.0); EOS # 0.7 10^3/uL (0.0-0.5); EOS % 13.7 % (0.0-3.0); HEMATOCRIT 34.6 % (36.0-47.0); HEMOGLOBIN 11.2 g/dl (12.0-15.5); LYMPH # 1.3 10^3/uL (1.5-5.0); LYMPH % 27.9 % (24.0-44.0); MEAN CORPUSCULAR HGB CONC 32.4 g/dl (32.0-36.5); MEAN CORPUSCULAR VOLUME 105.2 fl (80.0-96.0); MONO # 0.4 10^3/uL (0.0-0.8); MONO % 9.3 % (2.0-8.0); NEUTROPHILS # 2.2 10^3/uL (1.5-8.5); NEUTROPHILS % 47.4 % (36.0-66.0); PLATELET COUNT, AUTOMATED 152 10^3/uL (150-450); RED BLOOD COUNT 3.29 10^6/uL (4.00-5.40); WHITE BLOOD COUNT 4.7 10^3/uL (4.0-10.0)
[2023-01-10 11:50] LABS: ALBUMIN 3.4 G/DL (3.2-5.2); ALKALINE PHOSPHATASE 73 U/L (46-116); ALT/SGPT 16 U/L (7.0-40); AST/SGOT 22 U/L (<34); BILIRUBIN,TOTAL 0.6 MG/DL (0.3-1.2); BLOOD UREA NITROGEN 15 MG/DL (9-23); CARBON DIOXIDE LEVEL 30 MMOL/L (20-31); CHLORIDE LEVEL 107 MMOL/L (98-107); CREATININE FOR GFR 0.88 MG/DL (0.55-1.30); GLOMERULAR FILTRATION RATE > 60.0 (>32); GLUCOSE, FASTING 99 MG/DL (74-106); POTASSIUM SERUM 3.8 MMOL/L (3.5-5.1); SODIUM LEVEL 141 MMOL/L (136-145); TOTAL PROTEIN 5.8 G/DL (5.7-8.2)
== END ==
LOC: M LABDRAWC 11:14
PROVIDERS: ATTEND Nurse Practitioner
DX: C49.A2 Gastrointestinal stromal tumor of stomach (principal)

== ENCOUNTER → 2023-04-03 | Outpatient (REF) | payer MEDICARE, BC, OTHER ==
[2023-04-03 12:25] LABS: BASO # 0.1 10^3/uL (0.0-0.2); BASO % 1.6 % (0.0-1.0); EOS # 0.5 10^3/uL (0.0-0.5); EOS % 9.8 % (0.0-3.0); HEMATOCRIT 33.6 % (36.0-47.0); HEMOGLOBIN 10.8 g/dl (12.0-15.5); LYMPH # 1.6 10^3/uL (1.5-5.0); LYMPH % 30.8 % (24.0-44.0); MEAN CORPUSCULAR HEMOGLOBIN 33.2 pg (27.0-33.0); MEAN CORPUSCULAR HGB CONC 32.1 g/dl (32.0-36.5); MEAN CORPUSCULAR VOLUME 103.4 fl (80.0-96.0); MONO # 0.4 10^3/uL (0.0-0.8); MONO % 8.4 % (2.0-8.0); NEUTROPHILS # 2.5 10^3/uL (1.5-8.5); NEUTROPHILS % 49.2 % (36.0-66.0); PLATELET COUNT, AUTOMATED 158 10^3/uL (150-450); RED BLOOD COUNT 3.25 10^6/uL (4.00-5.40); WHITE BLOOD COUNT 5.1 10^3/uL (4.0-10.0)
[2023-04-03 12:28] LABS: ALBUMIN 3.6 G/DL (3.2-5.2); ALKALINE PHOSPHATASE 67 U/L (46-116); ALT/SGPT 18 U/L (7.0-40); AST/SGOT 23 U/L (<34); BILIRUBIN,TOTAL 0.6 MG/DL (0.3-1.2); BLOOD UREA NITROGEN 16 MG/DL (9-23); CALCIUM LEVEL 8.2 MG/DL (8.3-10.6); CARBON DIOXIDE LEVEL 29 MMOL/L (20-31); CHLORIDE LEVEL 106 MMOL/L (98-107); CREATININE FOR GFR 0.88 MG/DL (0.55-1.30); GLOMERULAR FILTRATION RATE > 60.0 (>32); GLUCOSE, FASTING 95 MG/DL (74-106); SODIUM LEVEL 142 MMOL/L (136-145); TOTAL PROTEIN 5.8 G/DL (5.7-8.2)
[2023-04-03 12:30] LABS: VITAMIN B12 LEVEL 429 PG/ML (211-911)
== END ==
LOC: M LABDRAWC 11:09
PROVIDERS: ATTEND Nurse Practitioner
DX: C49.A0 Gastrointestinal stromal tumor, unspecified site (principal); D51.9 Vitamin B12 deficiency anemia, unspecified

== ENCOUNTER → 2023-07-07 | Outpatient (REF) | payer MEDICARE, BC, OTHER ==
[2023-07-07 18:44] LABS: BASO # 0.1 10^3/uL (0.0-0.2); BASO % 1.5 % (0.0-1.0); EOS # 0.4 10^3/uL (0.0-0.5); EOS % 8.2 % (0.0-3.0); HEMATOCRIT 32.2 % (36.0-47.0); HEMOGLOBIN 10.5 g/dl (12.0-15.5); LYMPH # 1.2 10^3/uL (1.5-5.0); LYMPH % 23.5 % (24.0-44.0); MEAN CORPUSCULAR HEMOGLOBIN 34.4 pg (27.0-33.0); MEAN CORPUSCULAR HGB CONC 32.6 g/dl (32.0-36.5); MEAN CORPUSCULAR VOLUME 105.6 fl (80.0-96.0); MONO # 0.4 10^3/uL (0.0-0.8); MONO % 7.6 % (2.0-8.0); NEUTROPHILS # 3.1 10^3/uL (1.5-8.5); NEUTROPHILS % 58.8 % (36.0-66.0); PLATELET COUNT, AUTOMATED 108 10^3/uL (150-450); RED BLOOD COUNT 3.05 10^6/uL (4.00-5.40); WHITE BLOOD COUNT 5.2 10^3/uL (4.0-10.0)
[2023-07-07 19:11] LABS: ALBUMIN 3.5 G/DL (3.2-5.2); ALKALINE PHOSPHATASE 63 U/L (46-116); ALT/SGPT 18 U/L (7.0-40); AST/SGOT 30 U/L (<34); BILIRUBIN,TOTAL 0.6 MG/DL (0.3-1.2); BLOOD UREA NITROGEN 14 MG/DL (9-23); CALCIUM LEVEL 8.6 MG/DL (8.3-10.6); CARBON DIOXIDE LEVEL 28 MMOL/L (20-31); CHLORIDE LEVEL 108 MMOL/L (98-107); CREATININE FOR GFR 0.82 MG/DL (0.55-1.30); GLOMERULAR FILTRATION RATE > 60.0 (>32); GLUCOSE, FASTING 93 MG/DL (74-106); POTASSIUM SERUM 4.7 MMOL/L (3.5-5.1); SODIUM LEVEL 143 MMOL/L (136-145); TOTAL PROTEIN 5.9 G/DL (5.7-8.2)
== END ==
LOC: M LABDRAWC 16:54
PROVIDERS: ATTEND Specialist
DX: C49.A0 Gastrointestinal stromal tumor, unspecified site (principal)

== ENCOUNTER → 2023-07-28 | Outpatient (REF) | payer MEDICARE, BC, OTHER ==
[2023-07-28 13:10] LABS: BLOOD UREA NITROGEN 22 MG/DL (9-23); CALCIUM LEVEL 8.4 MG/DL (8.3-10.6); CARBON DIOXIDE LEVEL 29 MMOL/L (20-31); CHLORIDE LEVEL 109 MMOL/L (98-107); CREATININE FOR GFR 0.94 MG/DL (0.55-1.30); GLOMERULAR FILTRATION RATE > 60.0 (>32); GLUCOSE, FASTING 90 MG/DL (74-106); POTASSIUM SERUM 4.4 MMOL/L (3.5-5.1); SODIUM LEVEL 145 MMOL/L (136-145)
== END ==
LOC: M LABDRAWC 12:03
PROVIDERS: ATTEND Internal Medicine Interventional Cardiology
DX: I10 Essential (primary) hypertension (principal)

== ENCOUNTER → 2023-09-04 | Outpatient (REF) | payer MEDICARE, BC, OTHER ==
[~2023-09-04] MED LIST changes: +LOSA25TA13
[2023-09-04 12:44] LABS: BASO # 0.1 10^3/uL (0.0-0.2); BASO % 1.5 % (0.0-1.0); EOS # 0.8 10^3/uL (0.0-0.5); HEMATOCRIT 33.9 % (36.0-47.0); LYMPH % 19.4 % (24.0-44.0); MEAN CORPUSCULAR HEMOGLOBIN 33.7 pg (27.0-33.0); MEAN CORPUSCULAR HGB CONC 32.4 g/dl (32.0-36.5); MONO # 0.5 10^3/uL (0.0-0.8); MONO % 9.2 % (2.0-8.0); NEUTROPHILS # 2.8 10^3/uL (1.5-8.5); NEUTROPHILS % 54.5 % (36.0-66.0); PLATELET COUNT, AUTOMATED 144 10^3/uL (150-450); RED BLOOD COUNT 3.26 10^6/uL (4.00-5.40); WHITE BLOOD COUNT 5.2 10^3/uL (4.0-10.0)
[2023-09-04 13:18] LABS: ALBUMIN 3.5 G/DL (3.2-5.2); BILIRUBIN,TOTAL 0.6 MG/DL (0.3-1.2); CALCIUM LEVEL 8.8 MG/DL (8.3-10.6); CREATININE FOR GFR 0.95 MG/DL (0.55-1.30); GLOMERULAR FILTRATION RATE 59.2 (>32); POTASSIUM SERUM 4.5 MMOL/L (3.5-5.1); TOTAL PROTEIN 5.7 G/DL (5.7-8.2)
== END ==
LOC: M LABDRAWC 11:48
PROVIDERS: ATTEND Nurse Practitioner
DX: D53.9 Nutritional anemia, unspecified (principal); C49.A0 Gastrointestinal stromal tumor, unspecified site

== ENCOUNTER → 2023-11-04 | Outpatient (REF) | payer MEDICARE, BC, OTHER ==
[2023-11-04 11:46] LABS: BASO # 0.1 10^3/uL (0.0-0.2); BASO % 0.9 % (0.0-1.0); EOS # 1.7 10^3/uL (0.0-0.5); HEMATOCRIT 32.4 % (36.0-47.0); HEMOGLOBIN 10.2 g/dl (12.0-15.5); LYMPH # 1.1 10^3/uL (1.5-5.0); LYMPH % 16.3 % (24.0-44.0); MEAN CORPUSCULAR HEMOGLOBIN 33.2 pg (27.0-33.0); MEAN CORPUSCULAR HGB CONC 31.5 g/dl (32.0-36.5); MEAN CORPUSCULAR VOLUME 105.5 fl (80.0-96.0); MONO # 0.6 10^3/uL (0.0-0.8); MONO % 9.6 % (2.0-8.0); NEUTROPHILS % 46.1 % (36.0-66.0); PLATELET COUNT, AUTOMATED 171 10^3/uL (150-450); RED BLOOD COUNT 3.07 10^6/uL (4.00-5.40); WHITE BLOOD COUNT 6.4 10^3/uL (4.0-10.0)
[2023-11-04 11:51] LABS: EOS % 26.9 % (0.0-3.0)
[2023-11-04 12:06] LABS: ALBUMIN 3.4 G/DL (3.2-5.2); BILIRUBIN,TOTAL 0.5 MG/DL (0.3-1.2); CALCIUM LEVEL 8.4 MG/DL (8.3-10.6); CREATININE FOR GFR 1.05 MG/DL (0.55-1.30); GLOMERULAR FILTRATION RATE 52.8 (>32); POTASSIUM SERUM 4.3 MMOL/L (3.5-5.1); TOTAL PROTEIN 5.7 G/DL (5.7-8.2)
== END ==
LOC: M LABDRAWC 11:11
PROVIDERS: ATTEND Nurse Practitioner
DX: C49.A0 Gastrointestinal stromal tumor, unspecified site (principal); D53.9 Nutritional anemia, unspecified

== ENCOUNTER → 2023-12-26 | Outpatient (REF) | payer MEDICARE, OTHER ==
[~2023-12-26] MED LIST changes: +ASPI81TA26 PO
[2023-12-26 12:22] LABS: BASO # 0.1 10^3/uL (0.0-0.2); BASO % 1.8 % (0.0-1.0); EOS # 0.7 10^3/uL (0.0-0.5); EOS % 14.3 % (0.0-3.0); HEMATOCRIT 33.3 % (36.0-47.0); HEMOGLOBIN 10.6 g/dl (12.0-15.5); LYMPH # 1.4 10^3/uL (1.5-5.0); LYMPH % 27.1 % (24.0-44.0); MEAN CORPUSCULAR HEMOGLOBIN 32.9 pg (27.0-33.0); MEAN CORPUSCULAR HGB CONC 31.8 g/dl (32.0-36.5); MEAN CORPUSCULAR VOLUME 103.4 fl (80.0-96.0); MONO # 0.5 10^3/uL (0.0-0.8); MONO % 9.3 % (2.0-8.0); NEUTROPHILS # 2.4 10^3/uL (1.5-8.5); NEUTROPHILS % 47.3 % (36.0-66.0); PLATELET COUNT, AUTOMATED 122 10^3/uL (150-450); RED BLOOD COUNT 3.22 10^6/uL (4.00-5.40); WHITE BLOOD COUNT 5.1 10^3/uL (4.0-10.0)
[2023-12-26 12:37] LABS: ALBUMIN 3.5 G/DL (3.2-5.2); BILIRUBIN,TOTAL 0.6 MG/DL (0.3-1.2); CALCIUM LEVEL 9.1 MG/DL (8.3-10.6); CREATININE FOR GFR 1.02 MG/DL (0.55-1.30); GLOMERULAR FILTRATION RATE 54.6 (>32); PERCENT SATURATION 29.5 % (13.2-45.0); POTASSIUM SERUM 4.2 MMOL/L (3.5-5.1); TOTAL PROTEIN 5.8 G/DL (5.7-8.2)
[2023-12-26 12:38] LABS: FERRITIN 83.1 NG/ML (7.3-270.7)
== END ==
LOC: M LABDRAWC 11:30
PROVIDERS: ATTEND Nurse Practitioner
DX: C49.A0 Gastrointestinal stromal tumor, unspecified site (principal)

== ENCOUNTER → 2024-01-13 | Outpatient (REF) | payer MEDICARE, BC ==
[2024-01-13 17:49] LABS: ALBUMIN 3.7 G/DL (3.2-5.2); ALKALINE PHOSPHATASE 69 U/L (46-116); ALT/SGPT 16 U/L (7.0-40); AST/SGOT 19 U/L (<34); BILIRUBIN,TOTAL 0.5 MG/DL (0.3-1.2); BLOOD UREA NITROGEN 26 MG/DL (9-23); CALCIUM LEVEL 9.3 MG/DL (8.3-10.6); CARBON DIOXIDE LEVEL 31 MMOL/L (20-31); CHLORIDE LEVEL 108 MMOL/L (98-107); CHOLESTEROL LEVEL 165 MG/DL (<200); CHOLESTEROL RISK RATIO 2.77 (<5); CREATININE FOR GFR 0.87 MG/DL (0.55-1.30); GLOMERULAR FILTRATION RATE > 60.0 (>32); GLUCOSE, FASTING 85 MG/DL (74-106); HDL CHOLESTEROL 59.4 MG/DL (>40); NON-HDL-C 105.6 MG/DL; POTASSIUM SERUM 4.6 MMOL/L (3.5-5.1); SODIUM LEVEL 145 MMOL/L (136-145); TOTAL PROTEIN 6.1 G/DL (5.7-8.2); TRIGLYCERIDES LEVEL 53 MG/DL (<150)
[2024-01-13 18:33] LABS: HEMOGLOBIN A1c 5.1 % (4.0-6.0)
== END ==
LOC: M SFHCCLAY 09:27
PROVIDERS: ATTEND Nurse Practitioner Family
DX: Z00.00 Encounter for general adult medical examination without abnormal findings (principal); C49.A0 Gastrointestinal stromal tumor, unspecified site; Z95.2 Presence of prosthetic heart valve; Z79.899 Other long term (current) drug therapy

== ENCOUNTER → 2024-02-23 | Outpatient (REF) | payer MEDICARE, BC ==
[2024-02-23 12:23] LABS: BASO # 0.1 10^3/uL (0.0-0.2); BASO % 1.5 % (0.0-1.0); EOS # 0.7 10^3/uL (0.0-0.5); EOS % 9.9 % (0.0-3.0); HEMATOCRIT 36.5 % (36.0-47.0); HEMOGLOBIN 11.6 g/dl (12.0-15.5); LYMPH # 1.7 10^3/uL (1.5-5.0); LYMPH % 24.9 % (24.0-44.0); MEAN CORPUSCULAR HEMOGLOBIN 31.8 pg (27.0-33.0); MEAN CORPUSCULAR HGB CONC 31.8 g/dl (32.0-36.5); MONO # 0.7 10^3/uL (0.0-0.8); MONO % 10.7 % (2.0-8.0); NEUTROPHILS # 3.6 10^3/uL (1.5-8.5); NEUTROPHILS % 52.9 % (36.0-66.0); PLATELET COUNT, AUTOMATED 191 10^3/uL (150-450); RED BLOOD COUNT 3.65 10^6/uL (4.00-5.40); WHITE BLOOD COUNT 6.8 10^3/uL (4.0-10.0)
[2024-02-23 12:53] LABS: TOTAL IRON BINDING CAPACITY 323 UG/DL (250-425)
[2024-02-23 12:54] LABS: ALBUMIN 3.5 G/DL (3.2-5.2); ALKALINE PHOSPHATASE 58 U/L (46-116); ALT/SGPT 15 U/L (7.0-40); AST/SGOT 17 U/L (<34); BILIRUBIN,TOTAL 0.6 MG/DL (0.3-1.2); BLOOD UREA NITROGEN 20 MG/DL (9-23); CALCIUM LEVEL 9.1 MG/DL (8.3-10.6); CARBON DIOXIDE LEVEL 32 MMOL/L (20-31); CHLORIDE LEVEL 108 MMOL/L (98-107); CREATININE FOR GFR 0.86 MG/DL (0.55-1.30); GLOMERULAR FILTRATION RATE > 60.0 (>32); GLUCOSE, FASTING 92 MG/DL (74-106); IRON (FE) 72 UG/DL (50-170); PERCENT SATURATION 22.3 % (13.2-45.0); POTASSIUM SERUM 4.4 MMOL/L (3.5-5.1); SODIUM LEVEL 140 MMOL/L (136-145); TOTAL PROTEIN 5.9 G/DL (5.7-8.2)
[2024-02-23 12:55] LABS: FERRITIN 68.4 NG/ML (7.3-270.7)
[2024-02-23 12:56] LABS: VITAMIN B12 LEVEL 380 PG/ML (211-911)
== END ==
LOC: M LABDRAWC 11:38
PROVIDERS: ATTEND Nurse Practitioner
DX: C49.A0 Gastrointestinal stromal tumor, unspecified site (principal)

== ENCOUNTER → 2024-08-05 | Outpatient (REF) | payer MEDICARE, BC, OTHER ==
[2024-08-05 12:02] LABS: BASO # 0.1 10^3/uL (0.0-0.2); BASO % 1.5 % (0.0-1.0); EOS # 0.6 10^3/uL (0.0-0.5); EOS % 7.5 % (0.0-3.0); HEMOGLOBIN 11.5 g/dl (12.0-15.5); LYMPH # 1.9 10^3/uL (1.5-5.0); MEAN CORPUSCULAR HEMOGLOBIN 31.1 pg (27.0-33.0); MEAN CORPUSCULAR HGB CONC 31.9 g/dl (32.0-36.5); MEAN CORPUSCULAR VOLUME 97.3 fl (80.0-96.0); MONO # 0.7 10^3/uL (0.0-0.8); MONO % 9.3 % (2.0-8.0); NEUTROPHILS # 4.5 10^3/uL (1.5-8.5); NEUTROPHILS % 57.4 % (36.0-66.0); PLATELET COUNT, AUTOMATED 180 10^3/uL (150-450); WHITE BLOOD COUNT 7.8 10^3/uL (4.0-10.0)
[2024-08-05 12:26] LABS: ALBUMIN 3.4 G/DL (3.2-5.2); ALKALINE PHOSPHATASE 81 U/L (35-104); ALT/SGPT 13 U/L (7.0-40); AST/SGOT 19 U/L (<34); BILIRUBIN,TOTAL 0.8 MG/DL (0.3-1.2); BLOOD UREA NITROGEN 26 MG/DL (9-23); CALCIUM LEVEL 9.6 MG/DL (8.3-10.6); CARBON DIOXIDE LEVEL 30 MMOL/L (20-31); CHLORIDE LEVEL 104 MMOL/L (98-107); CREATININE FOR GFR 0.85 MG/DL (0.55-1.30); GLOMERULAR FILTRATION RATE > 60.0 (>32); GLUCOSE, FASTING 91 MG/DL (74-106); POTASSIUM SERUM 4.6 MMOL/L (3.5-5.1); SODIUM LEVEL 141 MMOL/L (136-145); TOTAL PROTEIN 6.4 G/DL (5.7-8.2)
== END ==
LOC: M LABDRAWC 11:47
PROVIDERS: ATTEND Nurse Practitioner
DX: C49.A0 Gastrointestinal stromal tumor, unspecified site (principal)

== ENCOUNTER → 2025-03-15 | Outpatient (REF) | payer MEDICARE, BC ==
[2025-03-15 13:06] LABS: BASO # 0.1 10^3/uL (0.0-0.2); BASO % 1.7 % (0.0-1.0); EOS # 0.7 10^3/uL (0.0-0.5); EOS % 9.5 % (0.0-3.0); LYMPH # 1.8 10^3/uL (1.5-5.0); LYMPH % 22.4 % (24.0-44.0); MONO # 0.8 10^3/uL (0.0-0.8); MONO % 9.8 % (2.0-8.0); NEUTROPHILS # 4.4 10^3/uL (1.5-8.5); NEUTROPHILS % 56.3 % (36.0-66.0); PLATELET COUNT, AUTOMATED 201 10^3/uL (150-450)
[2025-03-15 13:51] LABS: ALT/SGPT 12.0 U/L (7.0-40); AST/SGOT 24.0 U/L (<34); CALCIUM LEVEL 8.9 MG/DL (8.3-10.6); CARBON DIOXIDE LEVEL 28.0 MMOL/L (20-31); CHLORIDE LEVEL 107.0 MMOL/L (98-107); CREATININE FOR GFR 0.88 MG/DL (0.55-1.30); GLOMERULAR FILTRATION RATE 63.2 (>32); POTASSIUM SERUM 4.3 MMOL/L (3.5-5.1); SODIUM LEVEL 145.0 MMOL/L (136-145)
== END ==
LOC: M LAB REF 12:13
PROVIDERS: ATTEND Nurse Practitioner
DX: C16.9 Malignant neoplasm of stomach, unspecified (principal)

== ENCOUNTER → 2025-05-23 | Outpatient (CLI) | payer MEDICARE, BC, OTHER | LOC: M CLY 08:55 | PROVIDERS: ATTEND Nurse Practitioner Family | DX: M25.551 Pain in right hip (principal) ==